=== PATIENT | female | born 1990 | race Caucasian/White ===

== ENCOUNTER 2021-09-01 20:07 | Inpatient (IN) | payer OTHER, SELFPAY ==
[2021-09-01 20:13] VITALS: BP 120/82; PULSE 95; O2SAT 99
--- NOTE | 2021-09-01 20:26 | ED.PSYCH ---
HPI - Psych General Chief Complaint: Psychiatric Symptoms Stated Complaint: SECTION 12 SI Time Seen by Provider: 09/01/21 20:26 Source: patient and EMS Mode of arrival: EMS Limitations: no limitations History of Present Illness HPI Narrative: 30-year-old female with history of connective tissue disorder, Tethered cord syndrome status post recent spinal surgery in June, depression, history of suicidal ideation and attempt 10 years ago with an overdose who presents to the ER from [facility] with suicidal ideation and plan to overdose. Patient is in chung bed in the emergency department and having a difficult time discussing why she is here and the details surrounding her current presentation. She admits to being depressed and needing help. MD complaint: suicidal ideation and feels depressed Onset (ago): unknown Duration: constant History of same: Yes Relieving factors: none Exacerbating factors: none Associated psychiatric symptoms: depression and suicidal ideation Associated symptoms: denies other symptoms Treatments prior to arrival: placed on mental health hold If self harm: admits thoughts of self harm Related Data Home Medications Medication Instructions Recorded Confirmed Saccharomyces boulardii 250 mg 250 mg PO DAILY 09/01/21 09/01/21 capsule (Florastor) acetaminophen 300 mg-codeine 30 mg 1 tab PO Q6H PRN pain 09/01/21 09/01/21 tablet albuterol sulfate 90 mcg/actuation 2 puff inhalation Q4H PRN 09/01/21 09/01/21 aerosol inhaler Respiratory Distress baclofen 10 mg tablet 20 mg PO QID 09/01/21 09/01/21 cetirizine 10 mg tablet 10 mg PO DAILY 09/01/21 09/01/21 cevimeline 30 mg capsule 1 cap PO TID 09/01/21 09/01/21 cholecalciferol (vitamin D3) 125 125 mcg PO DAILY 09/01/21 09/01/21 mcg (5,000 unit) tablet cromolyn 100 mg/5 mL oral 10 ml PO QID 09/01/21 09/01/21 concentrate diazepam 2 mg tablet 2 mg PO QID PRN Muscle Spasm 09/01/21 09/01/21 famotidine 40 mg tablet 40 mg PO BID 09/01/21 09/01/21 ferrous sulfate 143 mg (45 mg 1 tab PO QAM 09/01/21 09/01/21 iron) tablet,extended release (Slow Release Iron) fluticasone 250 mcg-salmeterol 50 1 inh inhalation BID 09/01/21 09/01/21 mcg/dose blistr powdr for inhalation (Advair Diskus) fluticasone propionate 50 1 spray intranasal DAILY 09/01/21 09/01/21 mcg/actuation nasal spray,suspension hydroxyzine HCl 10 mg tablet 20 mg PO BEDTIME 09/01/21 09/01/21 lidocaine 5 % topical patch 1 patch topical DAILY PRN Pain 09/01/21 09/01/21 lorazepam 0.5 mg tablet 0.5 mg PO Q6H PRN Anxiety 09/01/21 09/01/21 methocarbamol 500 mg tablet 500 mg PO BID 09/01/21 09/01/21 omeprazole 20 mg capsule,delayed 20 mg PO DAILY 09/01/21 09/01/21 release ondansetron 4 mg disintegrating 4 mg PO Q12H PRN Nausea 09/01/21 09/01/21 tablet pregabalin 150 mg capsule 150 mg PO 0800,1300,1800,2200 09/01/21 09/01/21 pyridostigmine bromide 60 mg tablet 60 mg PO TID 09/01/21 09/01/21 sennosides 8.6 mg-docusate sodium 2 tab-cap PO BEDTIME 09/01/21 09/01/21 50 mg tablet (Senna Plus) sumatriptan succinate 50 mg tablet 50 mg PO DAILY PRN Migraine 09/01/21 09/01/21 Headache tamsulosin 0.4 mg capsule 0.4 mg PO DAILY 09/01/21 09/01/21 testosterone 1 packet topical DAILY 09/01/21 09/01/21 Allergies Allergy/AdvReac Type Severity Reaction Status Date / Time bupropion [From Wellbutrin] Allergy Unknown Verified 09/01/21 20:36 ciprofloxacin [From Cipro] Allergy Unknown Verified 09/01/21 22:45 escitalopram [From Lexapro] Allergy Unknown Verified 09/01/21 20:36 lamotrigine [From Lamictal] Allergy Unknown Verified 09/01/21 22:45 pilocarpine Allergy Unknown Verified 09/01/21 20:36 topiramate [From Topamax] Allergy Unknown Verified 09/01/21 22:45 Review of Systems Review of Systems: Constitutional: No Fever, No Chills ENT/Mouth: No sore throat, No Rhinorrhea, No Swallowing Difficulty Eyes: No Eye Pain, No Swelling, No Redness Cardiovascular: No Chest Pain, No SOB Respiratory: No Cough, No Sputum Gastrointestinal: No Nausea, No Vomiting, No Diarrhea, No abdominal Pain Genitourinary: No Dysuria, No Urinary Frequency, No Hematuria Musculoskeletal: No joint pain, No Myalgias Skin: No Skin Lesions, No rash Neuro: +Weakness, No Numbness, No Dizziness, No Headache Psych:+Anxiety/Panic, + Depression, +SI, No HI, No AH, No VH Heme/Lymph: No Bruising, No Lymphadenopathy Endocrine: No Polyuria, No Polydipsia PMFSH Past Medical History Medical History (Updated 09/01/21 @ 22:41 by SHERRY Ramos) Connective tissue disease Surgical History (Updated 09/01/21 @ 20:50 by Pilar Cota RN) H/O Spinal surgery Social History Social History Patient Tobacco Use Status: Never used Tobacco Use of substances other than those prescribed or required for medical reasons: No Substance Use Type: Marijuana Advance Directives: No Advance Directives Information Provided: No Physical Exam Vital Signs: Vital Signs: Last Vital Signs Temp 97.4 F 09/01/21 20:31 Pulse 99 09/01/21 20:31 Resp 16 09/01/21 20:31 BP 138/97 H 09/01/21 20:31 Pulse Ox 98 09/01/21 20:31 O2 Del Method 09/01/21 20:31 BMI result Body Mass Index 31.8 Appearance: Alert. Oriented X3. No acute distress. Eyes: Pupils equal, round and reactive to light. ENT: Pharynx normal. Neck: Normal inspection. Neck supple. CVS: Normal heart rate and rhythm. Pulses normal. Respiratory: No respiratory distress. Breath sounds normal. Abdomen: Soft and nontender. +BS x4 Skin: Skin warm and dry. Normal skin color. Normal skin turgor. No rashes. Extremities: No lower extremity edema. Neuro/psych: Oriented X 3. Grossly normal, nonfocal. CN II-XII intact. Ambulates with a steady gait using her Rollator walker. Making eye contact, normal speech and cognition. Depressed and suicidal. Course Course Course Narrative: 30-year-old female presents to the ER for evaluation of suicidal ideation. She was at a [facility] respite where she told someone she had a planned overdose. Patient would not elaborate. She arrives with a Section 12 completed in the community. She is an inpatient bed search. Will get basic lab workup for medical clearance. Reevaluation(s) Reevaluation #1: Labs are normal. Her urine toxicology is positive for opiates, benzodiazepines and marijuana. Patient has been accepted to for admission. MDM - Psych Lab Data Result diagrams: 09/01/21 21:02 09/01/21 21:02 Labs: Lab Results 09/01/21 09/01/21 09/01/21 Range/Units 21:02 21:02 21:02 WBC 7.7 (4.8-10.8) X10*3/uL RBC 4.39 (4.20-5.50) X10*6/uL Hgb 13.6 (12.0-16.0) g/dl Hct 39.4 (37.0-47.0) % MCV 89.7 (80.0-98.0) fL MCH 31.0 (27.0-33.0) pg MCHC 34.5 (31.0-35.0) g/dl RDW 12.0 (11.0-16.0) % Plt Count 212 (160-400) X10*3/uL MPV 10.2 (9.4-12.3) fL Immature Gran % (Auto) 0.4 (0.0-0.4) % Neut % (Auto) 52.6 (45-73) % Lymph % (Auto) 37.2 (20-40) % [place] % (Auto) 8.1 (2-11) % Eos % (Auto) 1.4 (0-4) % Baso % (Auto) 0.3 (0-2) % Lymph # (Auto) 2.9 (1.2-4.9) X10*3/uL [place] # (Auto) 0.6 (0.1-1.2) X10*3/uL Eos # (Auto) 0.1 (0.0-0.4) X10*3/uL Baso # (Auto) 0.0 (0.0-0.2) X10*3/uL Abs Immat Gran (auto) 0.03 (0.00-0.03) X10*3/uL Absolute Neuts (auto) 4.0 (2.0-8.3) x10*3/uL Absolute Nucleated RBC 0.000 (0.0-0.012) X10*3/uL Nucleated RBC % (auto) 0.0 (0.0-0.2) /100WBC Sodium 140 (135-145) mmol/L Potassium 3.9 (3.3-5.1) mmol/L Chloride 107 (96-108) mmol/L Carbon Dioxide 25 (22-29) mmol/L Anion Gap 12 (12-20) BUN 8 L (9-16) mg/dL Creatinine 0.71 (0.5-1.4) mg/dL Estim Creat Clear Calc 101.6 Estimated GFR > 60 Random Glucose 94 (60-115) mg/dL Calcium 8.8 (8.4-10.2) mg/dL Magnesium 2.2 (1.6-2.6) mg/dL Total Bilirubin 0.5 (0.0-1.0) mg/dL Direct Bilirubin 0.2 (0.0-0.5) mg/dL AST 14 (5-31) U/L ALT 13 (0-31) U/L Alkaline Phosphatase 67 (39-117) U/L Total Protein 7.1 (6.5-8.0) g/dL Albumin 4.3 (3.5-5.0) g/dL Urine Test (NEGATIVE) Urine Opiates Screen (Not Detect) Urine Fentanyl Screen (Not Detect) Ur Barbiturates Screen (Not Detect) Ur Phencyclidine Scrn (Not Detect) Ur Amphetamines Screen (Not Detect) U Benzodiazepines Scrn (Not Detect) Urine Cocaine Screen (Not Detect) U Marijuana (THC) Screen (Not Detect) Ethyl Alcohol mg/dL COVID-19 (JUAN) Negative (Negative) COVID-19 Clin Com See Note 09/01/21 09/01/21 09/01/21 Range/Units 21:03 21:03 21:03 WBC (4.8-10.8) X10*3/uL RBC (4.20-5.50) X10*6/uL Hgb (12.0-16.0) g/dl Hct (37.0-47.0) % MCV (80.0-98.0) fL MCH (27.0-33.0) pg MCHC (31.0-35.0) g/dl RDW (11.0-16.0) % Plt Count (160-400) X10*3/uL MPV (9.4-12.3) fL Immature Gran % (Auto) (0.0-0.4) % Neut % (Auto) (45-73) % Lymph % (Auto) (20-40) % [place] % (Auto) (2-11) % Eos % (Auto) (0-4) % Baso % (Auto) (0-2) % Lymph # (Auto) (1.2-4.9) X10*3/uL [place] # (Auto) (0.1-1.2) X10*3/uL Eos # (Auto) (0.0-0.4) X10*3/uL Baso # (Auto) (0.0-0.2) X10*3/uL Abs Immat Gran (auto) (0.00-0.03) X10*3/uL Absolute Neuts (auto) (2.0-8.3) x10*3/uL Absolute Nucleated RBC (0.0-0.012) X10*3/uL Nucleated RBC % (auto) (0.0-0.2) /100WBC Sodium (135-145) mmol/L Potassium (3.3-5.1) mmol/L Chloride (96-108) mmol/L Carbon Dioxide (22-29) mmol/L Anion Gap (12-20) BUN (9-16) mg/dL Creatinine (0.5-1.4) mg/dL Estim Creat Clear Calc Estimated GFR Random Glucose (60-115) mg/dL Calcium (8.4-10.2) mg/dL Magnesium (1.6-2.6) mg/dL Total Bilirubin (0.0-1.0) mg/dL Direct Bilirubin (0.0-0.5) mg/dL AST (5-31) U/L ALT (0-31) U/L Alkaline Phosphatase (39-117) U/L Total Protein (6.5-8.0) g/dL Albumin (3.5-5.0) g/dL Urine Test NEGATIVE (NEGATIVE) Urine Opiates Screen POSITIVE H (Not Detect) Urine Fentanyl Screen Not Detected (Not Detect) Ur Barbiturates Screen Not Detected (Not Detect) Ur Phencyclidine Scrn Not Detected (Not Detect) Ur Amphetamines Screen Not Detected (Not Detect) U Benzodiazepines Scrn POSITIVE H (Not Detect) Urine Cocaine Screen Not Detected (Not Detect) U Marijuana (THC) Screen POSITIVE H (Not Detect) Ethyl Alcohol < 10 mg/dL COVID-19 (JUAN) (Negative) COVID-19 Clin Com Critical Care Time Critical Care Time Critical Care Time: No Discharge Plan Discharge Clinical Impression: Suicidal ideation, Polysubstance abuse Patient Disposition: Admitted As Inpatient Interventions: Admission Worksheet (ED) Last Done: 09/01/21 22:46
[2021-09-01 20:31] VITALS: BP 138/97; PULSE 99; RESP 16; TEMP 36.3; O2SAT 98; BMI 31.8
--- NOTE | 2021-09-01 20:52 | PC.NURSE ---
pt changed over. Susana 1:1 with pt.
[2021-09-01 21:11] LABS: MANUAL DIFF FLAG NO
[2021-09-01 21:13] LABS: Basophils Percent Auto 0.3 % (0-2); Eosinophils Absolute Auto 0.1 X10*3/uL (0.0-0.4); Eosinophils Percent Auto 1.4 % (0-4); Hematocrit 39.4 % (37.0-47.0); Hemoglobin 13.6 g/dl (12.0-16.0); Imm Gran Abs Auto 0.03 X10*3/uL (0.00-0.03); Imm Gran Pct Auto 0.4 % (0.0-0.4); Lymphocytes Absolute Auto 2.9 X10*3/uL (1.2-4.9); Lymphocytes Percent Auto 37.2 % (20-40); Mean Corpuscular HGB Conc 34.5 g/dl (31.0-35.0); Mean Corpuscular Volume 89.7 fL (80.0-98.0); Mean Platelet Volume 10.2 fL (9.4-12.3); Monocytes Absolute Auto 0.6 X10*3/uL (0.1-1.2); Monocytes Percent Auto 8.1 % (2-11); Neutrophils Percent Auto 52.6 % (45-73); Platelet Count 212 X10*3/uL (160-400); Red Blood Count 4.39 X10*6/uL (4.20-5.50); White Blood Count 7.7 X10*3/uL (4.8-10.8)
[2021-09-01 21:15] LABS: UPreg QC Valid YES; Urine Pregnancy NEGATIVE (NEGATIVE)
[2021-09-01 21:27] LABS: Ethanol < 10 mg/dL
[2021-09-01 21:29] LABS: COVID-19 Test Negative (Negative)
[2021-09-01 21:29] LABS: Amphetamine Screen Urine Not Detected (Not Detect); Barbiturates, Urine Not Detected (Not Detect); Benzodiazepines Screen Urine POSITIVE (Not Detect); Cannabinoid Screen Urine POSITIVE (Not Detect); Cocaine Screen Urine Not Detected (Not Detect); Fentanyl, urine Not Detected (Not Detect); Opiate Screen Urine POSITIVE (Not Detect); Phencyclidine Screen Urine Not Detected (Not Detect)
[2021-09-01 21:30] LABS: Alanine Aminotransferase 13 U/L (0-31); Albumin Level 4.3 g/dL (3.5-5.0); Alkaline Phosphatase 67 U/L (39-117); Anion Gap 12 (12-20); Aspartate Amino Transferase 14 U/L (5-31); Bilirubin Direct 0.2 mg/dL (0.0-0.5); Bilirubin Total 0.5 mg/dL (0.0-1.0); Blood Urea Nitrogen 8 mg/dL (9-16); Calcium 8.8 mg/dL (8.4-10.2); Carbon Dioxide 25 mmol/L (22-29); Chloride 107 mmol/L (96-108); Creatinine Clr Calc Pharmacy 101.6; Estimated Glomerular Filt Rate > 60; Glucose Random 94 mg/dL (60-115); Magnesium 2.2 mg/dL (1.6-2.6); Potassium 3.9 mmol/L (3.3-5.1); Sodium 140 mmol/L (135-145); Total Protein 7.1 g/dL (6.5-8.0)
--- NOTE | 2021-09-01 22:35 | PHA.MEDREC ---
med rec complete, no issues Pharmacy Consult ? Medication Reconciliation Pharmacy has completed the medication reconciliation.
--- NOTE | 2021-09-01 22:45 | PC.NURSE ---
report given to Ernie NG pt aware of plan for care
[2021-09-02] MEDS: Baclofen 20 MG TABLET PO ×5 (00:47→22:13)
[2021-09-02] MEDS: Famotidine 20 MG TABLET 40 MG PO ×2 (00:47→07:58)
[2021-09-02] MEDS: Sennosides/Docusate Sodium TABLET 2 TAB PO ×2 (00:47→22:12)
[2021-09-02 01:01] VITALS: BP 132/99; PULSE 87; RESP 16; TEMP 37.5; O2SAT 98
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
[2021-09-02] MEDS: diazePAM 2 MG TABLET PO ×4 (02:44→22:19)
--- NOTE | 2021-09-02 03:00 | PC.NURSE ---
PT SIGNED A 3 DAY NOTICE ON 09/01/2021. UP ON 09/06/2021.
[2021-09-02] MEDS: Cholecalciferol (Vitamin D3) 25 MCG TABLET 125 MCG PO (07:57)
[2021-09-02] MEDS: Tamsulosin HCL 0.4 MG CAPSULE PO (07:58)
[2021-09-02] MEDS: Ondansetron ODT 4 MG TAB.RAPDIS TRANSLINGU (07:58)
[2021-09-02] MEDS: Loratadine 10 MG TABLET PO (07:58)
[2021-09-02] MEDS: Omeprazole 20 MG CAPSULE.DR PO (07:58)
[2021-09-02] MEDS: Fluticasone Propionate Nasal 16 GM SPRAY 1 SPRAY NOSTRIL-B (09:44)
[2021-09-02] MEDS: Pregabalin 150 MG CAPSULE PO ×4 (09:44→22:12)
[2021-09-02] MEDS: Fluticasone/Vilanterol 100/25 BLST.W.DEV 1 PUFF INHALE (09:45)
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
[2021-09-02] MEDS: Acetaminophen 325 MG TABLET 650 MG PO (16:50)
[2021-09-02 18:00] VITALS: BP 139/82; PULSE 80; RESP 18; TEMP 36.8; O2SAT 98
[2021-09-02] MEDS: hydrOXYzine HCL 10 MG TABLET 20 MG PO (22:09)
[2021-09-03 09:00] VITALS: BP 136/90; TEMP 37.1
[2021-09-03] MEDS: Loratadine 10 MG TABLET PO (09:38)
[2021-09-03] MEDS: Baclofen 20 MG TABLET PO (09:38)
[2021-09-03] MEDS: Tamsulosin HCL 0.4 MG CAPSULE PO (09:38)
[2021-09-03] MEDS: Omeprazole 20 MG CAPSULE.DR PO (09:38)
[2021-09-03] MEDS: Fluticasone/Vilanterol 100/25 BLST.W.DEV 1 PUFF INHALE (09:39)
[2021-09-03] MEDS: Cholecalciferol (Vitamin D3) 25 MCG TABLET 125 MCG PO (09:39)
[2021-09-03] MEDS: Pregabalin 150 MG CAPSULE PO (09:39)
[2021-09-03] MEDS: Fluticasone Propionate Nasal 16 GM SPRAY 1 SPRAY NOSTRIL-B (09:39)
[2021-09-03] MEDS: Famotidine 20 MG TABLET 40 MG PO (09:39)
[2021-09-03] MEDS: SUMAtriptan succinate 50 MG TABLET PO (09:46)
[2021-09-03] MEDS: diazePAM 2 MG TABLET PO (09:46)
== END 2021-09-03 13:43 | disposition home or self-care (01) | DRG 755 ==
LOC: HO.ED 22:46 → HO.PM5 09-02
PROVIDERS: Physician Assistant; Admitting Provider Psychiatry & Neurology Psychiatry; Emergency Provider Internal Medicine; PCP Family Medicine; Visit Provider Psychiatry & Neurology Psychiatry
DX: F43.12 Post-traumatic stress disorder, chronic (principal); D47.09 Other mast cell neoplasms of uncertain behavior; R45.851 Suicidal ideations; Z20.822 Contact with and (suspected) exposure to COVID-19; Z91.51 Personal history of suicidal behavior; M35.9 Systemic involvement of connective tissue, unspecified; F19.10 Other psychoactive substance abuse, uncomplicated; Z79.51 Long term (current) use of inhaled steroids; Z88.1 Allergy status to other antibiotic agents; Z88.8 Allergy status to other drugs, medicaments and biological substances; Z79.899 Other long term (current) drug therapy
CPT/HCPCS: 80048; 80076; 80307; 81025; 82077; 83735; 85025; 87635; 99285

== ENCOUNTER 2022-10-15 11:32 | Emergency (ER) | payer OTHER, SELFPAY ==
[2022-10-15] VITALS (7 sets, daily range): BP systolic 106–127; BP diastolic 52–85; PULSE 70–85; RESP 14–18; TEMP 36.6–36.9; O2SAT 93–96; BMI 29.3
--- NOTE | ~2022-10-15 | CT_ITS ---
EXAMINATION: CT ANGIOGRAM OF THE CHEST WITH AND WITHOUT CONTRAST (CT PULMONARY ANGIOGRAM FOR PE) CLINICAL INFORMATION: Reason for Exam +DVT, syncope, eval for saddle PE COMPARISON: None available. TECHNIQUE: Prior to contrast administration, noncontrast localization images were obtained. Subsequently, multidetector volumetric imaging was performed from the thoracic inlet to below the diaphragms following the administration of 80 mL Omnipaque 350 intravenous contrast. No contrast reaction reported Sagittal, coronal, and MIP oblique sagittal reformatted images were obtained on the CT workstation, uploaded to PACS, and reviewed. This CT examination was performed using dose optimization techniques as appropriate, variously including the following: *Automated exposure control *Adjustment of mA and/or kV according to patient size (this includes techniques or standardized protocols for targeted exams where dose is matched to indication/reason for exam; i.e. extremities or head) *Use of iterative reconstruction technique Total exam dose-length product 412 mGy-cm FINDINGS: QUALITY OF STUDY/CONTRAST BOLUS: Satisfactory. PULMONARY ARTERIES: There are multiple filling defects in bilateral lower lobe pulmonary artery branches consistent with PE. There is thrombus visualized in the proximal right upper lobe pulmonary artery branches well. THORACIC AORTA: No aneurysm. LUNG: The lungs are expanded with compressive atelectasis in both lower lobes posterior segments and minimal platelike atelectasis in in bilateral lung bases. PLEURA: There is bilateral small pleural effusions. MEDIASTINUM: Normal heart size. No pericardial effusion. No hilar or mediastinal lymphadenopathy. No evidence of septal bowing or right heart strain. CORONARY ARTERY CALCIFICATION: None visualized on this study. CHEST WALL/AXILLA: No axillary or internal mammary lymphadenopathy. OSSEOUS STRUCTURES: No acute or suspicious osseous abnormality. UPPER ABDOMEN: Visualized liver and spleen appears unremarkable. No reflux of contrast into the hepatic veins to suggest elevated right heart pressures. CT/CT angio chest PE protocol IMPRESSION: Bilateral PE. Bilateral small pleural effusions with compressive and platelike atelectasis in both lower lobes. Results were immediately called by phone to Ashley Jansen NP at 3:47 PM. VTE: positive
--- NOTE | ~2022-10-15 | US_ITS ---
EXAMINATION: US VENOUS ULTRASOUND WITH DOPPLER LOWER EXTREMITY, BILATERAL CLINICAL INFORMATION: Leg pain, PE recently. COMPARISON: None available. TECHNIQUE: Ultrasound of the deep veins is performed from the hip to the calf with compression sonography and color and pulse Doppler assessment. Spectral analysis with color-flow imaging is performed. FINDINGS: RIGHT: Positive deep venous thrombosis is seen in the distal segment of the right femoral vein as well as the popliteal and peroneal veins. The right common femoral, profunda femoral, proximal femoral, mid femoral and posterior tibial veins are patent. No right popliteal cyst. The subcutaneous soft tissues are unremarkable. LEFT: There is no evidence for deep venous thrombosis in the left common femoral, profunda femoral, femoral, popliteal and calf veins. No left popliteal cyst. The subcutaneous soft tissues are unremarkable. If the patient's symptoms persist, followup ultrasound in 5 days 7 days might be of value to exclude proximal propagation from a non-visualized calf vein. US/US venous duplex LE IMPRESSION: 1. Positive deep venous thrombosis in the right lower extremity as detailed above. 2. No evidence for deep venous thrombosis in the left lower extremity.
--- NOTE | ~2022-10-15 | XR_ITS ---
EXAMINATION: CHEST 2 VIEWS CLINICAL INFORMATION: Near syncope. COMPARISON: No recent pertinent prior studies are available for comparison. TECHNIQUE: AP frontal and lateral views of the chest obtained FINDINGS: The lungs are hypoexpanded. No focal infiltrate, effusion, edema, or pneumothorax. Cardiac and mediastinal silhouettes are within normal limits for technique. No acute bony abnormality seen with old healed lateral left seventh rib fracture again noted. XR/XR chest 2V IMPRESSION: Hypoexpanded but otherwise no evidence of acute disease.
--- NOTE | ~2022-10-15 | CT_ITS ---
CT head/brain wo IV con CLINICAL INFORMATION: Reason for Exam ISSA COMPARISON: No prior CT scan available for comparison. TECHNIQUE: Department standard protocol. This CT examination was performed using dose optimization techniques as appropriate, variously including the following: *Automated exposure control *Adjustment of mA and/or kV according to patient size (this includes techniques or standardized protocols for targeted exams where dose is matched to indication/reason for exam; i.e. extremities or head) *Use of iterative reconstruction technique DLP: 659 mGy-cm FINDINGS: CEREBRAL HEMISPHERES: There is no evidence of intra-axial or extra-axial mass, hemorrhage or acute infarct. BRAIN PARENCHYMA: Normal [place]-white matter differentiation. SUBDURAL SPACE: No bleed. BASAL GANGLIA AND PINEAL GLAND: Unremarkable VENTRICLES: Symmetric and normal in size. CEREBELLUM AND BRAINSTEM: No space-occupying mass, hemorrhage or acute infarct. CEREBELLOPONTINE ANGLES: No lesion found. ORBITS: No intraorbital mass. VESSELS: Unremarkable SKULL BASE: Unremarkable INCLUDED SINUSES AT SKULL BASE: Clear SKULL AND SKIN: No fracture or bone lesion found. CT/CT head/brain wo IV con IMPRESSION: No CT evidence of intracranial space-occupying mass, bleed or infarct.
--- NOTE | 2022-10-15 12:01 | ED_ITS ---
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 She does have chest discomfort with breathing. No SOB, cough, fevers, chills, abdominal pain, vomiting, diarrhea. Feels dizzy all the time even when she is resting. Reports her doctors recently increased her doses of codeine and valium for body pain/spasticity. Denies additional med changes. Also c/o generalized ISSA x 5 days prior to starting the AC therapy Related Data Home Medications Medication Instructions Recorded Confirmed albuterol sulfate 90 mcg/actuation 2 puff inhalation Q4H PRN 09/01/21 10/15/22 aerosol inhaler Respiratory Distress baclofen 10 mg tablet 20 mg PO 01,07,13,19 09/01/21 10/16/22 cetirizine 10 mg tablet 10 mg PO BID 09/01/21 10/15/22 cevimeline 30 mg capsule 1 cap PO TID@0700,1300,1900 09/01/21 10/16/22 cholecalciferol (vitamin D3) 125 125 mcg PO DAILY 09/01/21 10/15/22 mcg (5,000 unit) tablet cromolyn 100 mg/5 mL oral 10 ml PO QID 09/01/21 10/15/22 concentrate diazepam 2 mg tablet 2 mg PO 6XD PRN Muscle Spasm 09/01/21 10/15/22 famotidine 40 mg tablet 40 mg PO BID@0700,1900 09/01/21 10/16/22 fluticasone 250 mcg-salmeterol 50 1 inh inhalation BID 09/01/21 10/15/22 mcg/dose blistr powdr for inhalation (Advair Diskus) lorazepam 0.5 mg tablet 0.5 mg PO Q6H PRN Anxiety 09/01/21 10/15/22 omeprazole 20 mg capsule,delayed 20 mg PO DAILY 09/01/21 10/15/22 release ondansetron 4 mg disintegrating 4 mg PO Q12H PRN Nausea 09/01/21 10/15/22 tablet pregabalin 150 mg capsule 150 mg PO 0100,0700,1300,1900 09/01/21 10/16/22 pyridostigmine bromide 60 mg tablet 60 mg PO BID@0100,1300 09/01/21 10/16/22 sumatriptan succinate 50 mg tablet 50 mg PO DAILY PRN Migraine 09/01/21 10/15/22 Headache tamsulosin 0.4 mg capsule 0.8 mg PO DAILY 09/01/21 10/15/22 apixaban 5 mg tablet (Eliquis) 5 mg PO BID@0700,1900 10/15/22 10/16/22 ascorbic acid (vitamin C) 500 mg 500 mg PO BID 10/15/22 10/15/22 tablet (Vitamin C) azelastine 137 mcg (0.1 %) nasal 1 spray intranasal BID 10/15/22 10/15/22 spray aerosol carbidopa 25 mg-levodopa 100 mg 0.5 tab PO TID@0700,1300,1900 10/15/22 10/16/22 tablet codeine sulfate 30 mg tablet 30 mg PO Q4H PRN pain 10/15/22 10/15/22 cromolyn 5.2 mg/spray (4 %) nasal 1 spray intranasal BID 10/15/22 10/15/22 spray (Nasalcrom) docusate sodium 100 mg capsule 100 mg PO BID PRN Constipation 10/15/22 10/15/22 fexofenadine 180 mg tablet 180 mg PO DAILY 10/15/22 10/15/22 hydroxyzine HCl 25 mg tablet 25 mg PO 0100,0700,1300,1900 10/15/22 10/16/22 magnesium glycinate 100 mg tablet 400 mg PO DAILY 10/15/22 10/15/22 montelukast 10 mg tablet 10 mg PO DAILY 10/15/22 10/15/22 omega 9-ned-ris-fish oil 1,000 mg 1 cap PO DAILY 10/15/22 10/15/22 (120 mg-180 mg) capsule (Fish Oil) pyridostigmine bromide 60 mg tablet 90 mg PO BID@0700,1900 10/15/22 10/16/22 quercetin 500 mg capsule 1,600 mg PO DAILY 10/15/22 10/15/22 simethicone 125 mg capsule (Gas 125 mg PO DAILY PRN 10/15/22 10/15/22 Relief Extra Strength) Gastrointestinal Spasms Or Cramping tizanidine 2 mg tablet 3 mg PO Q8H 10/15/22 10/16/22 Allergies Allergy/AdvReac Type Severity Reaction Status Date / Time bupropion [From Wellbutrin] Allergy Unknown Verified 09/01/21 20:36 ciprofloxacin [From Cipro] Allergy Unknown Verified 09/01/21 22:45 escitalopram [From Lexapro] Allergy Unknown Verified 09/01/21 20:36 garlic Allergy Vomiting Verified 09/02/21 00:59 gluten Allergy Vomiting Verified 09/02/21 00:59 lamotrigine [From Lamictal] Allergy Unknown Verified 09/01/21 22:45 onion Allergy Vomiting Verified 09/02/21 00:59 pilocarpine Allergy Unknown Verified 09/01/21 20:36 topiramate [From Topamax] Allergy Unknown Verified 09/01/21 22:45 Review of Systems Review of Systems: Yes all other systems are reviewed and are negative Constitutional: Constitutional: Reports no additional constitutional complaints, Denies body ache(s), Denies chills, Denies fever(s), Reports headache(s) and Reports weakness Eyes: Eyes: Reports no additional eye complaints and Denies change in vision ENT: Reports system reviewed and no additional complaints, except as documented, Reports dizziness, Reports headache(s), Denies nasal congestion, Denies nasal discharge and Denies neck pain Cardiovascular: Cardiovascular: Reports no additional cardiovascular complaints, Reports chest pain, Denies leg edema and Denies dyspnea Respiratory: Respiratory: Reports no additional respiratory complaints, Denies cough and Denies dyspnea Gastrointestinal: Gastrointestinal: Reports no additional gastrointestinal complaints, Denies abdominal pain, Denies diarrhea, Denies nausea and Denies vomiting Genitourinary: Genitourinary: Reports no additional female genitourinary complaints and Denies urinary incontinence Musculoskeletal: Musculoskeletal: Reports no additional musculoskeletal c omplaints, Denies back pain, Denies arthralgias, Denies joint swelling, Denies neck pain, Denies numbness and Denies tingling Comments: +calf pain Integumentary/Breasts: Skin/Breast: Reports system reviewed and no additional complaints, except as docu and Denies rash Neurologic: Reports system reviewed and no additional complaints, except as documented, Reports dizziness, Reports headache(s), Denies numbness, Denies tingling and Reports weakness PMFSH Past Medical History Attestation statement: The following information was validated with the patient. Source: old records reviewed and nursing notes reviewed Surgical History H/O Spinal surgery Social History Social History Household Members: None Household Members Other:: LIVES ALONE Housing: Apartment Do you presently have visiting nurse or other home services: No Alcohol intake: never Patient Tobacco Use Status: Never used Tobacco Smoked in Last 30 Days: No Use of substances other than those prescribed or required for medical reasons: Yes Substance Use Type: Marijuana Advance Directives: Yes Advance Directives on File: Yes Advance Directives Date on File: 10/19/22 Patient : No service: Yes Sexual orientation: Decline to Answer Physical Exam ED Vital Signs: Vital Signs - 24 hr 10/19/22 21:57 10/20/22 05:05 10/20/22 12:00 Temperature 97.2 F 97.0 F 98 F Pulse Rate 56 73 71 Respiratory Rate 18 18 16 Blood Pressure 106/64 102/67 105/69 Pulse Oximetry 96 99 94 Oxygen Delivery Method Room Air Room Air Room Air 10/20/22 17:41 Temperature 97.3 F Pulse Rate 70 Respiratory Rate 16 Blood Pressure 117/78 Pulse Oximetry 98 Oxygen Delivery Method Room Air BMI result Body Mass Index 29.3 Const General: cooperative, healthy appearing, comfortable and no acute distress Orientation/consciousness: patient oriented x3 Limitations: no limitations HENMT Head: Yes normal to inspection Ears: hearing grossly normal bilaterally and TM's normal bilaterally Face and sinus: Yes normal facial exam Mouth: Normal oral and palatal mucosa present Throat: Yes posterior oropharynx normal, Yes tonsils normal and Yes uvula midline Eyes General: appearance normal, both eyes and all related structures Pupils: Equal, round and reactive pupils present Neck Neck: Yes normal visual inspection, Yes full ROM and Yes no lymphadenopathy Chest Chest palpation & inspection: normal inspection of the chest Neuro Other: Hypertonia LE General: patient oriented x3, moves all extremities and Unable to assess gait Cranial nerves: Yes CN's II-XII intact bilaterally, Yes Equal, round and reactive pupils present, Yes Bilaterally intact EOM present, Yes Nystagmus not present, Yes Normal facial strength present and Yes Midline tongue present Cognition (Neuro): normal cognition Gait exam (Neuro): Unable to assess gait Motor exam (neuro): 5/5 motor strength present throughout Sensory Exam: Normal double simultaneous stimulation for sensation Coordination: [id number] test normal Extrem Other: Tenderness to both calves General: Yes normal to inspection and Yes no pedal edema Course Course Course Narrative: 142-ultrasound shows a right lower extremity DVT. They were unable to obtain records from [facility] with recent admission. Will check CT chest to rule out PE and any saddle emobil, right heart strain. Also c/o ISSA and d/t AC therapy use will obtain CT head to r/o ICH. I spoke to the patient and her medical case worker at the bedside at length. They are concerned that the patient has had a decline over the last 6 weeks. Patient at that time had a baclofen pump inserted and since then has been struggling with various complaints. She does live alone and is concerned about being home alone. She tells me she does not walk far d/t her lower extremity spasticity. I did discuss short-term rehab as an option but the patient was not interested in this. She has been to several different hospitals including [facility] and has various providers over the [facility] area. She may benefit from following up with her primary care doctor for a total review of all of her medical conditions and medications and further management. Reevaluation(s) Reevaluation #1: 1600-CT of the chest does show bilateral pulmonary emboli. Patient is already on Eliquis. There is no evidence of saddle pulmonary embolism or right heart strain. Patient also has a right lower extremity DVT which was likely the cause of her pulmonary embolism. This was likely secondary to recent baclofen pump insertion and sedentary state due to increased spasticity of the lower extremities. Patient's labs are unremarkable. EKG is nonischemic. Orthostatics are negative. CT head shows no acute finding. Not sure why the patient is having burning skin sensation Patient is complaining of dizziness which seems nonpositional as well as headache. She is concerned her blood pressure may be low. It is normotensive here. She is on multiple medications which may lower her blood pressure and we did discuss that she may need a med review from her primary care doctor. She also recently increased her codeine and Valium dosages so this may be contributing to some of her symptoms. I have low suspicion for organic neurol ogical cause as patient appears to be at her baseline. She does live home alone and has had difficulty with her ADLs from both her lower extremity spasticity as well as her current symptoms. I do think would be beneficial for the patient to be seen by physical therapy and have case management involvement. Patient was agreeable to this. Will place patient in position observation pending disposi tion Reevaluation #2: At this time patient to remain in observation, vital signs are stable, uneventful night. Med reconciliation down. Pending PT and case management Time: 07:21 Reevaluation #3: Care team saw patient hopeful for SNF placement, pending PT eval tomorrow. Time: 06:53 Additional Reevaluation(s): Physician observation continued. No overnight events reported by nursing. Awaiting PT evaluation today. Patient being followed by case management. Vital signs stable. 09:25 PT in ED for evaluation, notified nursing that patient's O2 sat dropped to 80-82% with standing/taking a few steps. [place] text to Marshall Miguel NP for admission, she states patient can be discharged to either home on STR on O2 as she is already being appropriately treated for her emboli and does not meet admission criteria. Discussed with Brynn from who will look into obtaining home O2 for patient. 15:00 Patient requesting to speak to a provider after conversation with medical case worker. Patient expressing concern that her hypoxia with standing/ambulating could be related to heart failure, has history of heart failure 3 years prior. States most recent echo was earlier this year and was normal. No crackles appreciated on exam, no lower extremity edema, no evidence of fluid overload on CXR from 10/15. Will order BNP. 16:32 BNP is 24. Patient has no other clinical signs of heart failure. Do not feel echo is indicated at this time. 10/18/22 06:34 Physician observation continued, no overnight events reported by nursing. Vital signs stable. Plan is transfer to rehab, followed by CM. 10/18/22 15:42 Patient requesting to speak with this provider via the RN. Patient stating she feels as though we do not have adequate medical records to justify her placement at [facility]. States she has been seen at [facility], [facility], and [facility]. Will request medical records from those facilities. Patient is agreeable to this. 10/19/22-- 1109--physician observation continued. Labs reviewed. Satting 98% on RA this morning. Physical therapy went to evaluate patient this morning/ambulate to evaluate patient's oxygenation status however patient declined as was on the phone, they will return for re-evaluation. Case management following for likely placement. 10/20/2022 1634 -- Physican observation continues. Patient's eliquis order was incorrect. Spoke with pharmacy and we agreed that the patient should be restarted on their loading dose given they were only given the loading dose from 10/13 to 10/15 when it should have been from 10/13 to 10/20. Patient will now be on 10mg BID from today 10/20 to 10/27 then go back down to 5mg BID. Patient asked multiple times today to discharge but when I offered to put in discharge instructions, they stated they actually didn't want to be discharged. 10/20/20222027- patient is requesting to leave against medical advice because they do not feel a received appropriate care. I tried to discussed with the patient about the concerns and was cut short with ?I just want to get my meds and get out here. ? I patient that I was under the impression they are looking to get placed in a seen if because they could not care for themselves at home. The patient reports that they will ?go to another ER. ? The patient demanded to be medicated and then will leave against medical advice. The patient's vital signs are currently stable Medications Administered Generic Name Dose Route Start Last Admin Trade Name Freq PRN Reason Stop Dose Admin Ascorbic Acid 500 mg 10/15/22 21:00 10/20/22 08:55 Ascorbic Acid 500 Mg Tablet PO 500 mg BID BARI Administration Azelastine HCl 1 spray 10/15/22 21:00 10/20/22 08:54 Azelastine Hcl Nasal 137 Mcg/[place] 30 Ml NOSTRIL-B 1 spray BID BARI Administration Baclofen 20 mg 10/16/22 13:00 10/20/22 18:16 Baclofen 20 Mg Tablet PO 20 mg 0100,0700,1300,1900 BARI Administration Carbidopa/Levodopa 0.5 tab 10/16/22 13:00 10/20/22 18:15 Carbidopa/Levodopa 25/100 Tablet PO 0.5 tab TID@0700,1300,1900 BARI Administration Cromolyn Sodium 1 spray 10/15/22 21:00 10/20/22 08:55 Cromolyn Sodium Nasal 26 Ml Bottle NOSTRIL-B 1 spray BID BARI Administration Diazepam 2 mg 10/17/22 08:00 10/20/22 20:07 Diazepam 2 Mg Tablet PO 2 mg Q4H PRN Administration Muscle Spasm Docusate Sodium 100 mg 10/15/22 20:30 10/20/22 13:42 Docusate Sodium 100 Mg Capsule PO 100 mg BID PRN Administration Constipation Famotidine 40 mg 10/16/22 19:00 10/20/22 20:08 Famotidine 20 Mg Tablet PO 40 mg BID@0700,1900 BARI Administration Fluticasone/Vilanterol 1 puff 10/16/22 08:00 10/20/22 08:01 Fluticasone/Vilanterol 100/25 Blst.W.Dev INHALE 1 puff RDAILY [facility] Administration Hydroxyzine HCl 25 mg 10/15/22 20:30 10/20/22 08:00 Hydroxyzine Hcl 25 Mg Tablet PO 25 mg Q6H PRN Administration Itching Loratadine 10 mg 10/16/22 09:00 10/20/22 08:55 Loratadine 10 Mg Tablet PO 10 mg DAILY BARI Administration Montelukast Sodium 10 mg 10/15/22 21:15 10/19/22 21:10 Montelukast Sodium 10 Mg Tablet PO 10 mg BEDTIME BARI Administration Morphine Sulfate 15 mg 10/19/22 20:44 10/20/22 20:07 Morphine Sulfate Immed Release 15 Mg Tablet PO 15 mg RQ6H PRN Administration Pain, Severe (Pain Scale 7-10) Omeprazole 20 mg 10/15/22 20:45 10/20/22 05:11 Omeprazole 20 Mg Capsule.Dr PO 20 mg DAILY@0630 BARI Administration Ondansetron HCl 4 mg 10/15/22 20:30 10/20/22 13:42 Ondansetron Odt 4 Mg Tab.Rapdis TRANSLINGU 4 mg Q12H PRN Administration Nausea Pregabalin 150 mg 10/16/22 13:00 10/20/22 20:11 Pregabalin 150 Mg Capsule PO 150 mg 0100,0700,1300,1900 BARI Administration Pyridostigmine [place] 60 mg 10/16/22 13:00 10/20/22 12:49 Pyridostigmine [place] 60 Mg Tablet PO 60 mg BID@0100,1300 BARI Administration Pyridostigmine [place] 90 mg 10/16/22 19:00 10/20/22 20:08 Pyridostigmine [place] 60 Mg Tablet PO 90 mg BID@0700,1900 BARI Administration Sumatriptan Succinate 50 mg 10/15/22 20:30 10/19/22 15:02 Sumatriptan Succinate 50 Mg Tablet PO 50 mg DAILY PRN Administration Migraine Headache Tamsulosin HCl 0.8 mg 10/15/22 20:45 10/20/22 08:55 Tamsulosin Hcl 0.4 Mg Capsule PO 0.8 mg DAILY BARI Administration Tizanidine HCl 2 mg 10/17/22 09:00 10/20/22 15:25 Tizanidine Hcl 4 Mg Tablet PO 2 mg TID BARI Administration Vitamin D 125 mcg 10/15/22 20:45 10/20/22 10:27 Cholecalciferol (Vitamin D3) 25 Mcg Tablet PO 125 mcg DAILY BARI Administration Discontinued Medications Generic Name Dose Route Start Last Admin Trade Name Wesq PRN Reason Stop Dose Admin Apixaban 5 mg 10/15/22 21:00 10/16/22 08:24 Apixaban 5 Mg Tablet PO 5 mg BID BARI Administration Apixaban 5 mg 10/16/22 19:00 10/20/22 08:00 Apixaban 5 Mg Tablet PO 5 mg BID@0700,1900 BARI Administration Apixaban 5 mg 10/20/22 11:01 10/20/22 11:17 Apixaban 5 Mg Tablet PO 10/20/22 11:02 5 mg STAT STA Administration Baclofen 20 mg 10/15/22 21:00 10/16/22 08:22 Baclofen 20 Mg Tablet PO 20 mg QID BARI Administration Carbidopa/Levodopa 0.5 tab 10/15/22 21:00 10/16/22 08:22 Carbidopa/Levodopa 25/100 Tablet PO 0.5 tab TID BARI Administration Dantrolene Sodium 100 mg 10/20/22 11:21 10/20/22 14:00 Dantrolene Sodium 25 Mg Capsule PO 10/20/22 11:22 100 mg ONCE ONE Administration Diazepam 2 mg 10/15/22 20:30 10/17/22 03:44 Diazepam 2 Mg Tablet PO 2 mg 6XD PRN Administration Muscle Spasm Famotidine 40 mg 10/15/22 21:00 10/16/22 08:26 Famotidine 20 Mg Tablet PO 40 mg BID BARI Administration Sodium Chloride 1,000 mls @ 999 mls/hr 10/15/22 12:52 10/15/22 16:52 Ns IV 10/15/22 13:52 Infused .Q1H1M STA Infusion Lorazepam 0.5 mg 10/15/22 20:30 10/18/22 13:13 Lorazepam 0.5 Mg Tablet PO 0.5 mg Q6H PRN Administration Anxiety Non-Formulary Medication 180 mg 10/15/22 20:45 10/15/22 21:59 Fexofenadine PO Not Given DAILY [facility] Non-Formulary Medication 1 cap 10/15/22 20:45 10/15/22 21:59 [place] 8-Pdh-Gxl-Fish Oil [Fish Oil] PO Not Given DAILY BARI Oxycodone HCl 15 mg 10/15/22 22:00 10/17/22 16:51 Oxycodone Hcl Immed Release 15 Mg Tablet PO Not Given Q6H BARI Oxycodone HCl 15 mg 10/17/22 16:20 10/19/22 16:18 Oxycodone Hcl Immed Release 5 Mg Tablet PO 15 mg Q6H BARI Administration Pregabalin 150 mg 10/15/22 21:00 10/16/22 08:23 Pregabalin 150 Mg Capsule PO 150 mg QID BARI Administration Pyridostigmine [place] 60 mg 10/15/22 21:00 10/16/22 13:15 Pyridostigmine [place] 60 Mg Tablet PO Not Given BID@1200,2100 BARI Pyridostigmine [place] 90 mg 10/16/22 07:30 10/16/22 07:06 Pyridostigmine [place] 60 Mg Tablet PO 90 mg BID@0730,1730 BARI Administration Tizanidine HCl 3 mg 10/15/22 21:00 10/16/22 20:51 Tizanidine Hcl 4 Mg Tablet PO 3 mg TID BARI Administration Medical Decision Making Medical Decision Making [facility] Narrative: 31 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 She does have chest discomfort with breathing. No SOB, cough, fevers, chills, abdominal pain, vomiting, diarrhea. Feels dizzy all the time even when she is resting. Reports her doctors recently increased her doses of codeine and valium for body pain/spasticity. Denies additional med changes. Normal neuro exam with no focal deficits. Unable to ambulate her d/t LE spasticity (patient at baseline walks several steps only) Her vitals are stable Symptoms may be multifactorial Will obtain labs, UA, EKG, chest x-ray, orthostatic vital sign Differential Diagnosis Differential Diagnoses: The differential diagnosis associated with the present ation includes Orthostatic hypotension, DVT electrolyte abnormality, anemia, adverse reaction from medication Doubt acs, saddle PE, ICH/CVA Admission/Observation Consideration of admission/observation: Escalation of care including admission/observation considered Patient has recently diagnosed pulmonary embolism currently on Eliquis. She has no evidence of right heart strain, saddle pulmonary embolism or hypoxia to suggest need for admission. Lab Data [facility] Lab Attestation statement: I reviewed the patient's lab results. Reviewed labs which show mild leukopenia otherwise unremarkable. 10/15/22 12:32 10/15/22 12:33 Labs: Lab Results 10/15/22 10/15/22 10/15/22 Range/Units 12:03 12:32 12:32 WBC 3.5 L (4.8-10.8) X10*3/uL RBC 3.96 L (4.20-5.50) X10*6/uL Hgb 11.9 L (12.0-16.0) g/dl Hct 36.2 L (37.0-47.0) % MCV 91.4 (80.0-98.0) fL MCH 30.1 (27.0-33.0) pg MCHC 32.9 (31.0-35.0) g/dl RDW 11.9 (11.0-16.0) % Plt Count 172 (160-400) X10*3/uL MPV 10.5 (9.4-12.3) fL Immature Gran % (Auto) 0.3 (0.0-0.4) % Neut % (Auto) 55.6 (45-73) % Lymph % (Auto) 33.8 (20-40) % Wright % (Auto) 8.0 (2-11) % Eos % (Auto) 2.0 (0-4) % Baso % (Auto) 0.3 (0-2) % Lymph # (Auto) 1.2 (1.2-4.9) X10*3/uL Wright # (Auto) 0.3 (0.1-1.2) X10*3/uL Eos # (Auto) 0.1 (0.0-0.4) X10*3/uL Baso # (Auto) 0.0 (0.0-0.2) X10*3/uL Abs Immat Gran (auto) 0.01 (0.00-0.03) X10*3/uL Absolute Neuts (auto) 2.0 (2.0-8.3) x10*3/uL Absolute Nucleated RBC 0.000 (0.0-0.012) X10*3/uL Nucleated RBC % (auto) 0.0 (0.0-0.2) /100WBC PT 19.5 H (11.1-13.3) SEC INR 1.6 H (0.9-1.1) APTT (26.0-36.4) SEC Sodium (135-145) mmol/L Potassium (3.3-5.1) mmol/L Chloride (96-108) mmol/L Carbon Dioxide (22-29) mmol/L Anion Gap (12-20) BUN (9-16) mg/dL Creatinine (0.5-1.4) mg/dL Estim Creat Clear Calc Estimated GFR Random Glucose (60-115) mg/dL Calcium (8.4-10.2) mg/dL Magnesium (1.6-2.6) mg/dL Total Bilirubin (0.0-1.0) mg/dL Direct Bilirubin (0.0-0.5) mg/dL AST (5-31) U/L ALT (0-31) U/L Alkaline Phosphatase (39-117) U/L Total Creatine Kinase (26-140) U/L Troponin I High Sens (<3.5-17.0) ng/L B-Natriuretic Peptide (<100) pg/mL Total Protein (6.5-8.0) g/dL Albumin (3.5-5.0) g/dL Beta HCG, Quant mIU/mL Urine Color Urine Appearance Urine pH (5.0-9.0) Ur Specific [place] (1.005-1.025) Urine Protein (Neg-Trace) mg/dL Urine Glucose (UA) (Negative) mg/dL Urine Ketones (Negative) mg/dL Urine Blood (Negative) Urine Nitrite (Negative) Ur Leukocyte Esterase (Negative) COVID-19 (JUAN) Negative (Negative) COVID-19 Clin Com See Note 10/15/22 10/15/22 10/15/22 Range/Units 12:33 13:13 13:13 WBC (4.8-10.8) X10*3/uL RBC (4.20-5.50) X10*6/uL Hgb (12.0-16.0) g/dl Hct (37.0-47.0) % MCV (80.0-98.0) fL MCH (27.0-33.0) pg MCHC (31.0-35.0) g/dl RDW (11.0-16.0) % Plt Count (160-400) X10*3/uL MPV (9.4-12.3) fL Immature Gran % (Auto) (0.0-0.4) % Neut % (Auto) (45-73) % Lymph % (Auto) (20-40) % Wright % (Auto) (2-11) % Eos % (Auto) (0-4) % Baso % (Auto) (0-2) % Lymph # (Auto) (1.2-4.9) X10*3/uL [place] # (Auto) (0.1-1.2) X10*3/uL Eos # (Auto) (0.0-0.4) X10*3/uL Baso # (Auto) (0.0-0.2) X10*3/uL Abs Immat Gran (auto) (0.00-0.03) X10*3/uL Absolute Neuts (auto) (2.0-8.3) x10*3/uL Absolute Nucleated RBC (0.0-0.012) X10*3/uL Nucleated RBC % (auto) (0.0-0.2) /100WBC PT (11.1-13.3) SEC INR (0.9-1.1) APTT (26.0-36.4) SEC Sodium 143 (135-145) mmol/L Potassium 4.2 (3.3-5.1) mmol/L Chloride 110 H (96-108) mmol/L Carbon Dioxide 24 (22-29) mmol/L Anion Gap 13 (12-20) BUN 7 L (9-16) mg/dL Creatinine 0.78 (0.5-1.4) mg/dL Estim Creat Clear Calc 87.7 Estimated GFR > 60 Random Glucose 101 (60-115) mg/dL Calcium 9.1 (8.4-10.2) mg/dL Magnesium 2.1 (1.6-2.6) mg/dL Total Bilirubin 0.4 0.3 (0.0-1.0) mg/dL Direct Bilirubin 0.1 (0.0-0.5) mg/dL AST 15 16 (5-31) U/L ALT 5 5 (0-31) U/L Alkaline Phosphatase 74 70 (39-117) U/L Total Creatine Kinase 53 (26-140) U/L Troponin I High Sens < 2.7 (<3.5-17.0) ng/L B-Natriuretic Peptide (<100) pg/mL Total Protein 6.4 L 6.0 L (6.5-8.0) g/dL Albumin 3.5 3.3 L (3.5-5.0) g/dL Beta HCG, Quant < 2 mIU/mL Urine Color Urine Appearance Urine pH (5.0-9.0) Ur Specific [place] (1.005-1.025) Urine Protein (Neg-Trace) mg/dL Urine Glucose (UA) (Negative) mg/dL Urine Ketones (Negative) mg/dL Urine Blood (Negative) Urine Nitrite (Negative) Ur Leukocyte Esterase (Negative) COVID-19 (JUAN) (Negative) COVID-19 Clin Com 10/15/22 10/17/22 10/20/22 Range/Units 17:50 15:14 12:06 WBC 5.1 (4.8-10.8) X10*3/uL RBC 4.27 (4.20-5.50) X10*6/uL Hgb 13.0 (12.0-16.0) g/dl Hct 38.8 (37.0-47.0) % MCV 90.9 (80.0-98.0) fL MCH 30.4 (27.0-33.0) pg MCHC 33.5 (31.0-35.0) g/dl RDW 11.9 (11.0-16.0) % Plt Count 202 (160-400) X10*3/uL MPV 10.4 (9.4-12.3) fL Immature Gran % (Auto) 0.4 (0.0-0.4) % Neut % (Auto) 42.7 L (45-73) % Lymph % (Auto) 47.0 H (20-40) % Wright % (Auto) 6.1 (2-11) % Eos % (Auto) 3.2 (0-4) % Baso % (Auto) 0.6 (0-2) % Lymph # (Auto) 2.4 (1.2-4.9) X10*3/uL Wright # (Auto) 0.3 (0.1-1.2) X10*3/uL Eos # (Auto) 0.2 (0.0-0.4) X10*3/uL Baso # (Auto) 0.0 (0.0-0.2) X10*3/uL Abs Immat Gran (auto) 0.02 (0.00-0.03) X10*3/uL Absolute Neuts (auto) 2.2 (2.0-8.3) x10*3/uL Absolute Nucleated RBC 0.000 (0.0-0.012) X10*3/uL Nucleated RBC % (auto) 0.0 (0.0-0.2) /100WBC PT (11.1-13.3) SEC INR (0.9-1.1) APTT (26.0-36.4) SEC Sodium (135-145) mmol/L Potassium (3.3-5.1) mmol/L Chloride (96-108) mmol/L Carbon Dioxide (22-29) mmol/L Anion Gap (12-20) BUN (9-16) mg/dL Creatinine (0.5-1.4) mg/dL Estim Creat Clear Calc Estimated GFR Random Glucose (60-115) mg/dL Calcium (8.4-10.2) mg/dL Magnesium (1.6-2.6) mg/dL Total Bilirubin (0.0-1.0) mg/dL Direct Bilirubin (0.0-0.5) mg/dL AST (5-31) U/L ALT (0-31) U/L Alkaline Phosphatase (39-117) U/L Total Creatine Kinase (26-140) U/L Troponin I High Sens (<3.5-17.0) ng/L B-Natriuretic Peptide 24 (<100) pg/mL Total Protein (6.5-8.0) g/dL Albumin (3.5-5.0) g/dL Beta HCG, Quant mIU/mL Urine Color Yellow Urine Appearance Clear Urine pH 8.0 (5.0-9.0) Ur Specific [place] 1.020 (1.005-1.025) Urine Protein Negative (Neg-Trace) mg/dL Urine Glucose (UA) Negative (Negative) mg/dL Urine Ketones Trace (Negative) mg/dL Urine Blood Negative (Negative) Urine Nitrite Negative (Negative) Ur Leukocyte Esterase Negative (Negative) COVID-19 (JUAN) (Negative) COVID-19 Clin Com 10/20/22 10/20/22 10/20/22 Range/Units 12:06 12:06 12:06 WBC (4.8-10.8) X10*3/uL RBC (4.20-5.50) X10*6/uL Hgb (12.0-16.0) g/dl Hct (37.0-47.0) % MCV (80.0-98.0) fL MCH (27.0-33.0) pg MCHC (31.0-35.0) g/dl RDW (11.0-16.0) % Plt Count (160-400) X10*3/uL MPV (9.4-12.3) fL Immature Gran % (Auto) (0.0-0.4) % Neut % (Auto) (45-73) % Lymph % (Auto) (20-40) % Wright % (Auto) (2-11) % Eos % (Auto) (0-4) % Baso % (Auto) (0-2) % Lymph # (Auto) (1.2-4.9) X10*3/uL Wright # (Auto) (0.1-1.2) X10*3/uL Eos # (Auto) (0.0-0.4) X10*3/uL Baso # (Auto) (0.0-0.2) X10*3/uL Abs Immat Gran (auto) (0.00-0.03) X10*3/uL Absolute Neuts (auto) (2.0-8.3) x10*3/uL Absolute Nucleated RBC (0.0-0.012) X10*3/uL Nucleated RBC % (auto) (0.0-0.2) /100WBC PT 15.0 H D (11.1-13.3) SEC INR 1.2 H (0.9-1.1) APTT 38.2 H (26.0-36.4) SEC Sodium 141 (135-145) mmol/L Potassium 4.3 (3.3-5.1) mmol/L Chloride 110 H (96-108) mmol/L Carbon Dioxide 25 (22-29) mmol/L Anion Gap 10 L (12-20) BUN 13 (9-16) mg/dL Creatinine 0.72 (0.5-1.4) mg/dL Estim Creat Clear Calc 95.0 Estimated GFR > 60 Random Glucose 109 (60-115) mg/dL Calcium 9.2 (8.4-10.2) mg/dL Magnesium 1.9 (1.6-2.6) mg/dL Total Bilirubin 0.2 (0.0-1.0) mg/dL Direct Bilirubin (0.0-0.5) mg/dL AST 15 (5-31) U/L ALT 6 (0-31) U/L Alkaline Phosphatase 68 (39-117) U/L Total Creatine Kinase (26-140) U/L Troponin I High Sens < 2.7 (<3.5-17.0) ng/L B-Natriuretic Peptide (<100) pg/mL Total Protein 6.6 (6.5-8.0) g/dL Albumin 3.6 (3.5-5.0) g/dL Beta HCG, Quant mIU/mL Urine Color Urine Appearance Urine pH (5.0-9.0) Ur Specific [place] (1.005-1.025) Urine Protein (Neg-Trace) mg/dL Urine Glucose (UA) (Negative) mg/dL Urine Ketones (Negative) mg/dL Urine Blood (Negative) Urine Nitrite (Negative) Ur Leukocyte Esterase (Negative) COVID-19 (JUAN) (Negative) COVID-19 Clin Com 10/20/22 Range/Units 14:40 WBC (4.8-10.8) X10*3/uL RBC (4.20-5.50) X10*6/uL Hgb (12.0-16.0) g/dl Hct (37.0-47.0) % MCV (80.0-98.0) fL MCH (27.0-33.0) pg MCHC (31.0-35.0) g/dl RDW (11.0-16.0) % Plt Count (160-400) X10*3/uL MPV (9.4-12.3) fL Immature Gran % (Auto) (0.0-0.4) % Neut % (Auto) (45-73) % Lymph % (Auto) (20-40) % Wright % (Auto) (2-11) % Eos % (Auto) (0-4) % Baso % (Auto) (0-2) % Lymph # (Auto) (1.2-4.9) X10*3/uL Wright # (Auto) (0.1-1.2) X10*3/uL Eos # (Auto) (0.0-0.4) X10*3/uL Baso # (Auto) (0.0-0.2) X10*3/uL Abs Immat Gran (auto) (0.00-0.03) X10*3/uL Absolute Neuts (auto) (2.0-8.3) x10*3/uL Absolute Nucleated RBC (0.0-0.012) X10*3/uL Nucleated RBC % (auto) (0.0-0.2) /100WBC PT (11.1-13.3) SEC INR (0.9-1.1) APTT (26.0-36.4) SEC Sodium (135-145) mmol/L Potassium (3.3-5.1) mmol/L Chloride (96-108) mmol/L Carbon Dioxide (22-29) mmol/L Anion Gap (12-20) BUN (9-16) mg/dL Creatinine (0.5-1.4) mg/dL Estim Creat Clear Calc Estimated GFR Random Glucose (60-115) mg/dL Calcium (8.4-10.2) mg/dL Magnesium (1.6-2.6) mg/dL Total Bilirubin (0.0-1.0) mg/dL Direct Bilirubin (0.0-0.5) mg/dL AST (5-31) U/L ALT (0-31) U/L Alkaline Phosphatase (39-117) U/L Total Creatine Kinase (26-140) U/L Troponin I High Sens (<3.5-17.0) ng/L B-Natriuretic Peptide (<100) pg/mL Total Protein (6.5-8.0) g/dL Albumin (3.5-5.0) g/dL Beta HCG, Quant mIU/mL Urine Color Yellow Urine Appearance Clear Urine pH 5.5 (5.0-9.0) Ur Specific [place] 1.015 (1.005-1.025) Urine Protein Negative (Neg-Trace) mg/dL Urine Glucose (UA) Negative (Negative) mg/dL Urine Ketones Negative (Negative) mg/dL Urine Blood Negative (Negative) Urine Nitrite Negative (Negative) Ur Leukocyte Esterase Negative (Negative) COVID-19 (JUAN) (Negative) COVID-19 Clin Com Independent Interpretation I performed an independent interpretation of an: EKG, Plain X-Ray, Ultrasound and CT Scan Interpretation: I independently reviewed the EKG which shows normal sinus rhythm with a rate of 78, normal [place], normal QRS normal QT I independently reviewed the US of the RLE/CT chest/abdomen/pelvis, CXR and agree with the rad report Radiology Impression Discussion of test interpretation with radiology: I have reviewed the radiologist's reading. Radiologist Impression: Launch?Image [id number] [place] [address] Ultrasound Report Signed Patient: Chiquita Bee MR#: [id number] : 1990 Acct:[id number] Age/Sex: 31 / F ADM Date: 10/15/22 Loc: HO.ED Attending Dr: Ordering Physician: Ashley Bee NP Date of Service: 10/15/22 Procedure(s): US venous duplex LE BI Accession Number(s): [id number] cc: Ashley Bee NP~ EXAMINATION:? US VENOUS ULTRASOUND WITH DOPPLER LOWER EXTREMITY, BILATERAL CLINICAL INFORMATION:? Leg pain, PE recently. COMPARISON:? None available. TECHNIQUE: Ultrasound of the deep veins is performed from the hip to the calf with compression sonography and color and pulse Doppler assessment. Spectral analysis with color-flow imaging is performed. FINDINGS: RIGHT: Positive deep venous thrombosis is seen in the distal segment of the right femoral vein as well as the popliteal and peroneal veins. The right common femoral, profunda femoral, proximal femoral, mid femoral and posterior tibial veins are patent. No right popliteal cyst. The subcutaneous soft tissues are unremarkable. LEFT: There is no evidence for deep venous thrombosis in the left common femoral, profunda femoral, femoral, popliteal and calf veins. No left popliteal cyst. The subcutaneous soft tissues are unremarkable. If the patient's symptoms persist, followup ultrasound in 5 days 7 days might be of value to exclude proximal propagation from a non-visualized calf vein. US/US venous duplex LE BI IMPRESSION: 1. Positive deep venous thrombosis in the right lower extremity as detailed above. 2. No evidence for deep venous thrombosis in the left lower extremity. [id number] [place] [address] CT Scan Report Signed Patient: Chiquita Bee MR#: [id number] : 1990 Acct:[id number] Age/Sex: 31 / F ADM Date: 10/15/22 Loc: .ED Attending Dr: Ordering Physician: Ashley eBe NP Date of Service: 10/15/22 Procedure(s): CT angio chest PE protocol Accession Number(s): [id number] cc: Ashley Bee NP~ EXAMINATION: CT ANGIOGRAM OF THE CHEST WITH AND WITHOUT CONTRAST (CT PULMONARY ANGIOGRAM FOR PE) CLINICAL INFORMATION: Reason for Exam +DVT, syncope, eval for saddle PE COMPARISON: None available.? ? TECHNIQUE: Prior to contrast administration, noncontrast localization images were obtained. ? Subsequently, multidetector volumetric imaging was performed from the thoracic inlet to below the diaphragms following the administration of 80 mL Omnipaque 350 intravenous contrast. No contrast reaction reported Sagittal, coronal, and MIP oblique sagittal reformatted images were obtained on the CT workstation, uploaded to PACS, and reviewed. This CT examination was performed using dose optimization techniques as appropriate, variously including the following: *Automated exposure control *Adjustment of mA and/or kV according to patient size (this includes techniques or standardized protocols for targeted exams where dose is matched to indication/reason for exam; i.e. extremities or head) *Use of iterative reconstruction technique Total exam dose-length product 412 mGy-cm FINDINGS: QUALITY OF STUDY/CONTRAST BOLUS: Satisfactory. PULMONARY ARTERIES: There are multiple filling defects in bilateral lower lobe pulmonary artery branches consistent with PE. There is thrombus visualized in the proximal right upper lobe pulmonary artery branches well.? THORACIC AORTA: No aneurysm. LUNG: The lungs are expanded with compressive atelectasis in both lower lobes posterior segments and minimal platelike atelectasis in in bilateral lung bases. PLEURA: There is bilateral small pleural effusions. MEDIASTINUM: Normal heart size.? No pericardial effusion.? No hilar or mediastinal lymphadenopathy.? No evidence of septal bowing or right heart strain. CORONARY ARTERY CALCIFICATION: None visualized on this study. CHEST WALL/AXILLA: No axillary or internal mammary lymphadenopathy. OSSEOUS STRUCTURES: No acute or suspicious osseous abnormality.? UPPER ABDOMEN: Visualized liver and spleen appears unremarkable. No reflux of contrast into the hepatic veins to suggest elevated right heart pressures. CT/CT angio chest PE protocol IMPRESSION: Bilateral PE. ? Bilateral small pleural effusions with compressive and platelike atelectasis in both lower lobes. ? Results were immediately called by phone to Ashley Jansen NP? at 3:47 PM. ? VTE: positive Launch?Image [address] [address] XRay Report Signed Patient: Chiquita Bee MR#: [id number] : 1990 Acct:[id number] Age/Sex: 31 / F ADM Date: 10/15/22 Loc: HO.ED Attending Dr: Ordering Physician: Ashley Bee NP Date of Service: 10/15/22 Procedure(s): XR chest 2V Accession Number(s): [id number] cc: Ashley Bee NP~ EXAMINATION: CHEST 2 VIEWS CLINICAL INFORMATION: Near syncope. COMPARISON: No recent pertinent prior studies are available for comparison. TECHNIQUE: AP frontal and lateral views of the chest obtained? FINDINGS: The lungs are hypoexpanded. No focal infiltrate, effusion, edema, or pneumothorax. Cardiac and mediastinal silhouettes are within normal limits for technique. No acute bony abnormality seen with old healed lateral left seventh rib fracture again noted. XR/XR chest 2V IMPRESSION: Hypoexpanded but otherwise no evidence of acute disease. ? [address] [address] [address] Scan Report Signed Patient: Chiquita Bee MR#: [id number] : 1990 Acct:[id number] Age/Sex: 31 / F ADM Date: 10/15/22 Loc: .ED Attending Dr: Ordering Physician: Ashley Bee NP Date of Service: 10/15/22 Procedure(s): CT head/brain wo IV con Accession Number(s): [id number] cc: Ashley Bee NP~ CT head/brain wo IV con CLINICAL INFORMATION: Reason for Exam ISSA COMPARISON: No prior CT scan available for comparison. TECHNIQUE: Department standard protocol. This CT examination was performed using dose optimization techniques as appropriate, variously including the following: *Automated exposure control *Adjustment of mA and/or kV according to patient size (this includes techniques or standardized protocols for targeted exams where dose is matched to indication/reason for exam; i.e. extremities or head) *Use of iterative reconstruction technique DLP: 659 mGy-cm FINDINGS: ? CEREBRAL HEMISPHERES: There is no evidence of intra-axial or extra-axial mass, hemorrhage or acute infarct. BRAIN PARENCHYMA: Normal [place]-white matter differentiation. SUBDURAL SPACE: No bleed. BASAL GANGLIA AND PINEAL GLAND: Unremarkable VENTRICLES: Symmetric and normal in size. CEREBELLUM AND BRAINSTEM: No space-occupying mass, hemorrhage or acute infarct. CEREBELLOPONTINE ANGLES: No lesion found. ORBITS: No intraorbital mass. VESSELS: Unremarkable SKULL BASE: Unremarkable INCLUDED SINUSES AT SKULL BASE: Clear SKULL AND SKIN: No fracture or bone lesion found. CT/CT head/brain wo IV con IMPRESSION: No CT evidence of intracranial space-occupying mass, bleed or infarct. Independent Historian Clinical information obtained from an independent historian. History obtained from or confirmed by: EMS External Record Review External record reviewed: Outpatient record I did receive records from [facility]. Patient was admitted October 13 and discharged on October 14. Her note patient has a history of lumbar laminectomy for STD 2021 with recent baclofen pump implantation with General surgery at [facility] on October 06 for pelvic floor spasticity presented to [facility] with ongoing urinary retention for which she had been taking baclofen, Valium and tizanidine 4. Patient was concerned during this admission that her baclofen pump was not working and the catheter may have migrated. She was incidentally found to have bilateral pulmonary embolisms and was admitted to medicine and transition to [facility]. She did have baclofen pump interrogation and was seen by Neurosurgery and there was no baclofen pump m alfunction noted. Discharge Plan Discharge Clinical Impression: DVT (deep venous thrombosis), Pulmonary emboli, Weakness Patient Disposition: Left Against Medical Advice Instructions: Deep Vein Thrombosis (ED) Additional Instructions: Continue your eliquis Consider decreasing your dose of valium Prescriptions: No Action diazepam 2 mg Tablet 2 mg PO 6XD PRN (Reason: Muscle Spasm) pregabalin 150 mg Capsule 150 mg PO 0100,0700,1300,1900 Rx Instructions: 0100,0700,1300,1900 famotidine 40 mg Tablet 40 mg PO BID@0700,1900 ondansetron 4 mg Tablet,Disintegrating 4 mg PO Q12H PRN (Reason: Nausea) omeprazole 20 mg Capsule,Delayed Release(Dr/Ec) 20 mg PO DAILY cetirizine 10 mg Tablet 10 mg PO BID baclofen 10 mg Tablet 20 mg PO 01,07,, Rx Instructions: 0700, 1300, 1900, 0100 tamsulosin 0.4 mg Capsule 0.8 mg PO DAILY cevimeline 30 mg Capsule 1 cap PO TID@0700,1300,1900 fluticasone propion-salmeterol [Advair Diskus] 250-50 mcg/dose Blister With Device 1 inh INHALATION BID pyridostigmine bromide 60 mg Tablet 60 mg PO BID@0100,1300 Rx Instructions: at lunch and at bedtime cromolyn 100 mg/5 mL concentrate 10 ml PO QID cholecalciferol (vitamin D3) 125 mcg (5,000 unit) Tablet 125 mcg PO DAILY lorazepam 0.5 mg Tablet 0.5 mg PO Q6H PRN (Reason: Anxiety) sumatriptan succinate 50 mg Tablet 50 mg PO DAILY PRN (Reason: Migraine Headache) Rx Instructions: do not exceed 4 doses per 24 hrs albuterol sulfate 90 mcg/actuation Hfa Aerosol Inhaler 2 puff INHALATION Q4H PRN (Reason: Respiratory Distress) cromolyn [Nasalcrom] 5.2 mg/spray (4 %) [place],Non-Aerosol 1 spray INTRANASAL BID tizanidine 2 mg tablet 3 mg PO Q8H simethicone [Gas Relief Extra Strength] 125 mg capsule 125 mg PO DAILY PRN (Reason: Gastrointestinal Spasms Or Cramping) fexofenadine [Yvonne] 180 mg Tablet 180 mg PO DAILY ascorbic acid (vitamin C) [Vitamin C] 500 mg Tablet 500 mg PO BID pyridostigmine bromide 60 mg tablet 90 mg PO BID@0700,1900 Rx Instructions: in the morning and at dinner docusate sodium 100 mg Capsule 100 mg PO BID PRN (Reason: Constipation) montelukast 10 mg Tablet 10 mg PO DAILY hydroxyzine HCl 25 mg tablet 25 mg PO 0100,0700,1300,1900 Rx Instructions: 0100, 0700, 1300, 1900, codeine sulfate 30 mg tablet 30 mg PO Q4H PRN (Reason: pain) azelastine 137 mcg (0.1 %) aerosol,spray 1 spray intranasal BID carbidopa-levodopa 25-100 mg tablet 0.5 tab PO TID@0700,1300,1900 magnesium glycinate 100 mg Tablet 400 mg PO DAILY omega [id number]-wre-fish oil [Fish Oil] 1,000 mg (120 mg-180 mg) Capsule 1 cap PO DAILY Eliquis 5 mg tablet 5 mg PO BID@0700,1900 quercetin 500 mg Capsule 1,600 mg PO DAILY Referrals: Fahad Wood MD [Physician] - 1 week Stand Alone Forms: Against Medical Advice
--- NOTE | 2022-10-15 12:12 | ECG_ITS ---
Test Reason : CHEST PAIN Blood Pressure : / mmHG Vent. Rate : 078 BPM Atrial Rate : 078 BPM P-R Int : 166 ms QRS Dur : 088 ms QT Int : 412 ms P-R-T Axes : 031 018 029 degrees QTc Int : 469 ms Normal sinus rhythm Nonspecific ST and T wave abnormality Borderline ECG No previous ECGs available Referred By: Ashley Jansen Electronically Signed By:JANET ROSSI
[2022-10-15 12:38] LABS: MANUAL DIFF FLAG NO
[2022-10-15 12:42] LABS: Basophils Percent Auto 0.3 % (0-2); Eosinophils Absolute Auto 0.1 X10*3/uL (0.0-0.4); Hematocrit 36.2 % (37.0-47.0); Hemoglobin 11.9 g/dl (12.0-16.0); Imm Gran Abs Auto 0.01 X10*3/uL (0.00-0.03); Imm Gran Pct Auto 0.3 % (0.0-0.4); Lymphocytes Absolute Auto 1.2 X10*3/uL (1.2-4.9); Lymphocytes Percent Auto 33.8 % (20-40); Mean Corpuscular HGB Conc 32.9 g/dl (31.0-35.0); Mean Corpuscular Hemoglobin 30.1 pg (27.0-33.0); Mean Corpuscular Volume 91.4 fL (80.0-98.0); Mean Platelet Volume 10.5 fL (9.4-12.3); Monocytes Absolute Auto 0.3 X10*3/uL (0.1-1.2); Neutrophils Percent Auto 55.6 % (45-73); Platelet Count 172 X10*3/uL (160-400); Red Blood Count 3.96 X10*6/uL (4.20-5.50); Red Cell Distribution Width 11.9 % (11.0-16.0); White Blood Count 3.5 X10*3/uL (4.8-10.8)
[2022-10-15 12:48] LABS: INTERNATIONAL NORM RATIO 1.6 (0.9-1.1); Prothrombin Time 19.5 SEC (11.1-13.3)
[2022-10-15 12:53] LABS: COVID-19 Test Negative (Negative); IDNOW Serial# 9DB6401D
[2022-10-15 12:55] LABS: Alanine Aminotransferase 5 U/L (0-31); Albumin Level 3.5 g/dL (3.5-5.0); Alkaline Phosphatase 74 U/L (39-117); Anion Gap 13 (12-20); Aspartate Amino Transferase 15 U/L (5-31); Bilirubin Total 0.4 mg/dL (0.0-1.0); Blood Urea Nitrogen 7 mg/dL (9-16); Calcium 9.1 mg/dL (8.4-10.2); Carbon Dioxide 24 mmol/L (22-29); Chloride 110 mmol/L (96-108); Creatinine Clr Calc Pharmacy 87.7; Estimated Glomerular Filt Rate > 60; Glucose Random 101 mg/dL (60-115); Potassium 4.2 mmol/L (3.3-5.1); Sodium 143 mmol/L (135-145); Total Protein 6.4 g/dL (6.5-8.0)
[2022-10-15] MEDS: 0.9 % Sodium Chloride 1,000 ML 999 ML IV (13:13)
--- OUTSIDE RECORDS SUMMARY | 2022-10-15 13:26 | XMS_ITS ---
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 Active 62389109 Problem Postconcussion syndrome F07.81 Active 29955125 Problem TBI (traumatic brain injury) S06.9X9A Active 770272749 Problem Attention and concentration deficit R41.840 Active 719107570 Problem Migraine G43.909 Active 08514816 Problem PTSD (post-traumatic stress disorder) F43.10 Active 56436685 Problem Dysautonomia G90.9 Active 60369370 Problem Dystonia G24.9 Active 97299513 Problem Depression F32.9 Active 275044910 ALLERGIES Substance Reaction Event Type Date Status LaMICtal Unknown Drug Allergy Jun, Active Venlafaxine Unknown Drug Allergy Jun, Active Cipro Unknown Drug Allergy Jun, Active Pilocarpine Unknown Drug Allergy Jun, Active Gabapentin Unknown Drug Allergy Jun, Active Topiramate Unknown Drug Allergy Jun, Active Bupropion Unknown Drug Allergy Jun, Active ENCOUNTERS Encounter Location Date Diagnosis [address] [address] Aug, [address] [address] Jun, [address] [address] Jun, [address] [address] Jun, [address] [address] Jun, Postconcussion syndrome F07.81 ; JAE (obstructive sleep apnea) G47.33 ; Attention and concentration deficit R41.840 ; Depression F32.9 ; Migraine G43.909 ; Dysautonomia G90.9 ; PTSD (post-traumatic stress disorder) F43.10 ; 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 and Tethered cord syndrome Q06.[address] [address] Jun, [address] [address] May, [address] [address] Mar, [address] [address] Mar, JAE (obstructive sleep apnea) G47.33 ; Postconcussion syndrome F07.81 ; PTSD (post-traumatic stress disorder) F43.10 ; Migraine G43.909 ; Dystonia G24.9 ; 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 ; Tethered cord syndrome Q06.8 ; Depression F32.9 ; Attention and concentration deficit R41.840 and Dysautonomia G90.[address] [address] 30 Mar, [address] [address] Feb, [facility] [address] [address] Dec, IMMUNIZATIONS No Known Immunizations SOCIAL HISTORY Qualifiers Date Former Smoker REASON FOR REFERRAL FUNCTIONAL STATUS PLAN OF CARE Activity Details VITAL SIGNS Heart Rate 81 /min 2022-04-12 Weight 170 lbs 2022-04-12 BMI 34.33 kg/m2 2022-04-12 Height 59 in 2022-07-07 Height 59 in 2022-04-12 Blood pressure systolic 131 mm Hg Blood pressure diastolic 82 mm Hg 2022-03 MEDICATIONS Medication Instructions Dosage Frequency Start Date End Date Duration Status Tamsulosin HCl 0.4 MG TAKE ONE CAPSULE BY MOUTH EVERY DAY 90 Active Modafinil 100 MG Orally Once a day 1/2 tablet in the morning 24h Active Iron Slow Release 143 (45 Fe) MG TAKE ONE TABLET BY MOUTH EVERY MORNING WITH BREAKFAST 30 Active CPAP (New Autotitrating) Autotitrating Machine All tubing and supplies Mask of patient's preference Warm Humidification Mar, Active Baclofen 10 MG TAKE TWO TABLETS BY MOUTH FOUR TIMES A DAY 30 Active Cevimeline HCl 30 MG TAKE ONE CAPSULE BY MOUTH THREE TIMES A DAY 30 Active Pyridostigmine [place] 60 MG TAKE ONE TABLET BY MOUTH FOUR TIMES A DAY (AT 8AM, 1P.M, 6PM, AND 11PM) 30 Active Pregabalin 150 MG Oral Three times a day 1 capsule 8h Active Linzess 145 MCG TAKE ONE CAPSULE BY MOUTH EVERY DAY BEFORE BREAKFAST 30 Nadia alfaro D-3-5 125 MCG (5000 UT) TAKE ONE CAPSULE BY MOUTH EVERY DAY 90 Active Restasis 0.05 % ADMINISTER ONE DROP INTO BOTH EYES IN THE MORNING AND AT BEDTIME 30 Active Testosterone 25 MG/2.5GM (1%) APPLY ONE PACKET TOPICALLY ONCE A DAY 30 Active Azelastine HCl 137 MCG/SPRAY INSTILL 2 SPRAYS INTRANASALLY TWICE A DAY DIRECTED 25 Active Acetaminophen-Co deine 300-30 MG TAKE ONE TABLET BY MOUTH EVERY 6 HOURS NEEDED FOR PAIN 30 Active Quercetin 50 MG Orally Once a day 2 tablet 24h Active Lidocaine 5 % PLACE 1 PATCH ONTO THE SKIN DAILY REMOVE AND DISCARD PATCH WITHIN 12 HOURS OR DIRECTED BY 30 Nadia alfaro Vitamin C 1000 MG Orally Once a day 1 tablet 24h 30 day(s) Active Carbidopa-Levodo pa 25-100 MG TAKE 1/2 TABLET IN THE MORNING AND 1/2 TABLET AT NOON. 90 Active Florastor 250 MG TAKE ONE CAPSUL E BY MOUTH EVERY DAY 30 Not-Taki ng ZyrTEC Allergy 10 MG Orally Once a day 1 tablet 24h 30 day(s) Active Ondansetron 4 MG DISSOLVE ONE TABLET BY MOUTH EVERY 12 HOURS NEEDED FOR NAUSEA 15 Active Cromolyn Sodium 100 MG/5ML TAKE 15 ML (300 MG) BY MOUTH FOUR TIMES A DAY 30 Active diazePAM 2 MG TAKE 1 TABLET BY MOUTH 4 TIMES A DAY NEEDED FOR MUSCLE SPASM 30 Active Zinc 100 MG Orally Once a day 1 tablet 24h 30 day(s) Active Cetirizine HCl 10 MG TAKE ONE TABLET BY MOUTH EVERY DAY 30 Unknown Senna Plus 8.6-50 MG TAKE TWO TABLETS BY MOUTH TWICE A DAY 7 Not-Taki ng Famotidine 40 MG TAKE ONE TABLET BY MOUTH TWICE A DAY 30 Active Advair Diskus 250-50 MCG/ACT INHALE ONE PUFF BY MOUTH TWICE A DAY 30 Not-Taki ng Omeprazole 20 MG TAKE ONE CAPSUL E BY MOUTH EVERY DAY 90 Active hydrOXYzine HCl 10 MG TAKE TWO TABLETS BY MOUTH AT BEDTIME 30 Active Fluticasone Propionate 50 MCG/ACT INSTILL 2 SPRAYS INTO BOTH NOTRILS ONCE DAILY 30 Active Lyrica 75 MG Orally Once a day 1 capsule 24h Active SUMAtriptan Succinate 50 MG TAKE ONE TABLET BY MOUTH NEEDED FOR MIGRAINE (50 MG TOTAL) 23 Active PROCEDURES No Known procedures RESULTS No Results REASON FOR VISIT 3 month FU, CPAP FYI , RE:Re:RE:Genesight Report, Re:RE:Genesight Report, Genesight Report, f/u TBI, Migraines, CPAP prescription, RSC to 07/07/2022 2 month f/u, Rsc with JE, CPAP questions , [employer]: Migraines/Multiple Concussions, Confirm Appt, [employer]: Migrianes/Multiple Concussions, Sooner [employer] apt than 04/12/22, [employer]: TBI/Migraines, Needs call back from office Insurance Providers Health Insurance Type Health Plan Insurance Address Health Plan Insurance Phone Health Plan Insurance Name Health Plan Coverage Dates Member ID Patient Relationship to Subscriber Patient Address Patient Phone Patient Name Patient Date of Subscriber ID Subscriber Name Subscriber Date of Group No [facility] [address] [facility] [address] [employer] [facility] self Chiquita Chavez'Brien [id number] [facility] [address] [facility] [address] [facility] self Chiquita Bee [id number]
--- OUTSIDE RECORDS SUMMARY | 2022-10-15 13:26 | XMS_ITS | Patient Health Record ---
Author Name Unknown [facility] Address [address] [address] Care Team Providers Care Inside Wireman Name Role Phone Balbina Lopez Primary Care Provider Unavailabl e Stu Mojica Unavailable [phone] Vianey Holder Unavailable [phone] Timo Becerra Unavailable [phone] Elin Box Unavailable [phone] ALLERGIES Allergen (clinical drug ingredient) Drug/Non Drug Allergy documented on EMR Reaction Allergy Type Onset Date Status lamotrigine LaMICtal Unknown Drug Allergy Activ e topiramate topiramate Unknown Drug Allergy Activ e pilocarpine Salagen Unknown Drug Allergy Activ e REASON FOR REFERRAL Reason seizure Diagnosis 1 Seizure (R56.9) Referring Provider First Name Balbina Referring Provider Last Name John Referred [facility], Referred Provider Timo Becerra Referred Address [address] [place] [address],[address],[address], Referred Provider Specialty Neurology General Notes Magaly Thakkar 11/23/2021 08:31:05 AM >sent referral request, Magaly Thakkar 12/17/2021 11:25:30 AM >SENT 2ND REQUEST Referral Priority Routine Reason g43 Diagnosis 1 Chronic migraine (G4 3.709) Referring Provider First Name Balbina Referring Provider Last Name John Referred [facility] Referred Provider Stu Mojica Referred Address [address] [facility],[address],[address], Referred Provider Specialty Neurology General Notes Magaly Thakkar 03/22/2022 06:50:31 AM >SENT REFERRAL REQUEST, Magaly Thakkar 04/14/2022 08:46:45 AM >SENT 2ND REQUEST Referral Priority Routine MEDICATIONS Medication SIG (Take, Route, Frequency, Duration) Notes Start Date End Date Status diazapam 2 mg 1 tab(s) orally 4 times a day Active ferrous sulfate 220 mg/5 mL 5 mL orally once a day for 30 day(s) Active Cod Liver Oil Vitamin A and D 1 cap(s) orally once a day for 30 day(s) Active fluticasone 50 mcg/inh 1 puff(s) inhaled 2 times a day for 30 day(s) Unknown cromolyn 10 mg/mL 2 mL by nebulizer 4 times a day for 30 day(s) Active LORazepam 0.5 mg 1 tab(s) orally PRN PRN Unknown carbidopa-levodopa 25 mg-100 mg 1/2 tab orally 3 times a day Active Claritin 10 mg 1 tab(s) orally once a day Unknown cevimeline 30 mg 1 cap(s) orally 3 times a day for 30 day(s) Active diazapam 2.5 mg as directed rectally once Unknown baclofen 10 mg 2 tab(s) orally 4 times a day Active Ajovy Autoinjector 225 mg/1.5 mL as directed subcutaneously once a month for 30 days Unknown Botox 200 unit vial 200 units administer 155 units into head and neck in divided doses intramuscular every 12 weeks for 90 days 02/22/2022 05/18/2023 Active busPIRone 10 mg 1 tab(s) orally 2 times a day for 30 day(s) Unknown hydrOXYzine hydrochloride 10 mg 2 tab(s) orally once a day Active Salagen 5 mg 1 tab(s) orally TID Unknown Lidocaine Hydrochloride, Topical 5% 1 PATCH applied topically once a day for 30 day(s) Active penicillin Unknown Flonase 50 mcg/inh 1 spray(s) in each nostril once a day for 30 day(s) Active saccharomyces boulardii lyo 250 mg 1 cap(s) orally once a day Unknown Melatonin 3 mg 1 tab(s) orally once a day (at bedtime) Unknown SUMAtriptan 50 mg 1 tab(s) PRN Active pyridostigmine 60 mg 1 tab(s) orally 4 times a day 90mg/60mg Active Restasis Active Pepcid 40 mg 1 tab(s) orally 2 times a day Active pregabalin 150 mg 1 cap(s) orally 3 times a day plus 75mg once a day Active magnesium Active ondansetron 4 mg 1 tab(s) orally ever y 8 hours Active Advair Diskus Active Vitamin D3 1,000 iu tab oral once a day for 30 days 5000 Active albuterol 90 mcg/inh 2 puff(s) inhaled prn Active acetaminophen-hydrocod one Unknown tamsulosin 0.4 mg 1 cap(s) orally once a day for 30 day(s) Active Testosterone Gel 2 % As directed Active IMMUNIZATIONS Vaccine Route Administration Date Status Comme nts Covid 19 Pfizer Unknown 07/01/2020 Administered Covid 19 Pfizer Unknown 07/29/2020 Administered SOCIAL HISTORY Tobacco Use: Social History Observation Description Date Details (start date - stop date) Never Smoker NA - NA Sex Assigned At : Social History Observation Description Sex Assigned At Unknown Tobacco Use: Question Answer Notes Do you smoke? never smoker PROBLEMS Problem Type ICD Code Onset Dates Problem Status W/U Status Risk SNOMED Code Notes Problem Chronic migraine (G43.709) Active confirmed Chronic migraine (493013574) Problem Headache syndrome (G44.89) Active confirmed Headache (03053229) Problem Dysautonomia (G90.1) Active confirmed D ysautonomia (34759470) Problem Joint hyperextensibility of multiple sites (M24.80) Active confirmed Generalized benign joint hypermobility (096285859) VITAL SIGNS Blood pressure diastolic 80 mm Hg 10/15/2021 Oximetry 99 % 10/15/2021 Height 69 in 04/29/2022 Blood pressure systolic 110 mm Hg 10/15/2021 Weight 160 lbs 10/15/2021 BMI 23.63 kg/m2 10/15/2021 Encounters Encounter Location Date Provider Diagnosis [facility], [address] [address] 02/22/2022 Timo Becerra [facility], [address] [address] 02/22/2022 Timo Becerra [facility] [address] [place] [phone] 03/25/2022 Stu Mojica [facility] [address] [place] [phone] 04/28/2022 Elin Box [facility] [address] [place] [address] 10/18/2021 Timo Becerra [facility], [address] [place] [phone] 10/18/2021 Timo Becerra [facility], [address] [place] [phone] 11/02/2021 Timo Becerra Episode of confusion R41.0 [facility] [address] [address] 11/17/2021 Timo Becerra [facility] [address] [place] [phone] 11/17/2021 Timo Becerra [facility], [address] [place] [phone] 11/18/2021 Timo Becerra [facility], [address] [place] [address] 11/23/2021 Timo Becerra [facility], [address] [facility] [address] [place] [address] 12/24/2021 Timo Becerra [facility], [address] [place] [phone] 10/18/2021 Vianey Holder [facility], [address] [place] [phone] 12/24/2021 Vianey Holder [facility], [address] [place] [phone] 10/26/2021 Vianey Holder Seizure R56.9 [facility], [address] [place] [address] 12/07/2021 Timo Becerra Seizure R56.9 [facility], [address] [place] [address] 10/15/2021 Timo Becerra Weakness of left arm R29.898 ; Headache syndrome G44.89 ; Joint hyperextensibility of multiple sites M24.80 ; Dysautonomia G90.1 and Episode of confusion R41.0 [facility], [address] [address] 03/25/2022 Elin Box [facility], [address] [address] 04/29/2022 Elin Box [facility], [address] [address] 12/27/20[facility] [address] [address] 12/10/[address] [facility], [address] [address] 02/22/2022 Timo Becerra Joint hyperextensibi lity of multiple sites M24.80 ; Dysautonomia G90.1 and Chronic migraine G43.709 ASSESSMENTS Encounter Date Diagnosis Assessment Notes Treatment Notes Treatment Clinical Notes 10/15/2021 Weakness of left arm (ICD-10 - R29.898) 10/15/2021 Headache syndrome (ICD-10 - G44.89) 10/26/2021 Seizure (ICD-10 - R56.9) 11/02/2021 Episode of confusion (ICD-10 - R41.0) 12/07/2021 Seizure (ICD-10 - R56.9) 02/22/2022 Joint hyperextensibi lity of multiple sites (ICD-10 - M24.80) 02/22/2022 Dysautonomia (ICD-10 - G90.1) 10/15/2021 Joint hyperextensibi lity of multiple sites (ICD-10 - M24.80) 02/22/2022 Chronic migraine (IC D-10 - G43.709) 10/15/2021 Dysautonomia (ICD-10 - G90.1) 10/15/2021 Episode of confusion (ICD-10 - R41.0) PLAN OF TREATMENT Next Appt Details Provider Name:Elin rock, 11/15/2022 11:30:00 AM, [address] [facility], [address], [place], [address], Provider Name:Timo Becerra, 03/29/2023 11:30:00 AM, [address] [facility], [facility] [[email or web address] [address], [place], [address], Insurance Providers Payer Name Payer Address Payer Phone Subscriber Number Group Number Insured Name Patient Relationship to Insured Coverage Start Date Coverage End Date MEDICAID [employer] [address] [place] [id number] Chiquita Bee Self - patient is the insured MEDICAL (GENERAL) HISTORY Medical History History ICD Code asthma joint hypermobility Headache syndrome Joint hyperextensibility of multiple sit es Dysautonomia Surgical History Surgery Date(Month/Year) oral 01/22/2021 Botox bladder/ neck Teathered cord release surgery 07/02
[2022-10-15 13:41] LABS: Alanine Aminotransferase 5 U/L (0-31); Albumin Level 3.3 g/dL (3.5-5.0); Alkaline Phosphatase 70 U/L (39-117); Aspartate Amino Transferase 16 U/L (5-31); Bilirubin Direct 0.1 mg/dL (0.0-0.5); Bilirubin Total 0.3 mg/dL (0.0-1.0); HCG Quantitative < 2 mIU/mL; Magnesium 2.1 mg/dL (1.6-2.6)
[2022-10-15 13:58] LABS: Troponin-I High Sensitivity < 2.7 ng/L (<3.5-17.0)
[2022-10-15 18:08] LABS: Appearance Urine Clear; Color Urine Yellow; Glucose Urine UA Negative (Negative); Leukocyte Esterase Urine Negative (Negative); Nitrite Urine Negative (Negative); Urine Blood Negative (Negative); Urine Ketones Trace mg/dL (Negative); Urine Protein Negative (Neg-Trace)
--- NOTE | 2022-10-15 18:15 | PHA.MEDREC ---
Pharmacy Consult ? Medication Reconciliation Pharmacy has completed the medication reconciliation. spoke with patient who had a general list of medications. Confirmed others that were not on the list. She was on slow release iron and was recently switched to regular 325mg iron but patient has not started the new prescription. She also has not started the vyvanse 10mg dailyDesc. Does use lidocaine patches as needed but has temporarily stopped using them as they have not helped. Does have lorazepam at home but only uses as needed. Patient described her pump releasing a total of 160mcg of baclofen that is spread out during the day.
--- NOTE | 2022-10-15 20:48 | PC.NURSE ---
I assumed care of the pt at 1900. Pt is resting in bed at this time, A&Ox4, GCS 15, with warm, dry skin. Pt has been asking for her night time medications, which are ordered but pending pharmacy verification. Pt did not state other complaints, and continues to rest in bed, speaking on the phone.
[2022-10-15] MEDS: Carbidopa/Levodopa 25/100 TABLET 0.5 TAB PO (21:41)
[2022-10-15] MEDS: Cholecalciferol (Vitamin D3) 25 MCG TABLET 125 MCG PO (21:42)
[2022-10-15] MEDS: Pregabalin 150 MG CAPSULE PO (21:42)
[2022-10-15] MEDS: pyRIDostigmine bromide 60 MG TABLET PO (21:43)
[2022-10-15] MEDS: Ascorbic Acid 500 MG TABLET PO (21:43)
[2022-10-15] MEDS: Baclofen 20 MG TABLET PO (21:43)
[2022-10-15] MEDS: Omeprazole 20 MG CAPSULE.DR PO (21:44)
[2022-10-15] MEDS: Famotidine 20 MG TABLET 40 MG PO (21:44)
[2022-10-15] MEDS: Tamsulosin HCL 0.4 MG CAPSULE 0.8 MG PO (21:44)
[2022-10-15] MEDS: Apixaban 5 MG TABLET PO (21:44)
[2022-10-15] MEDS: Montelukast Sodium 10 MG TABLET PO (21:44)
[2022-10-15] MEDS: hydrOXYzine HCL 25 MG TABLET PO (21:55)
[2022-10-15] MEDS: diazePAM 2 MG TABLET PO (21:55)
[2022-10-15] MEDS: oxyCODONE HCl Immed Release 15 MG TABLET PO (22:41)
[2022-10-16] VITALS (7 sets, daily range): BP systolic 96–114; BP diastolic 55–72; PULSE 68–99; RESP 15–19; TEMP 36.8; O2SAT 93–98
[2022-10-16] MEDS: diazePAM 2 MG TABLET PO ×4 (03:09→23:50)
[2022-10-16] MEDS: oxyCODONE HCl Immed Release 15 MG TABLET PO ×4 (03:52→21:54)
[2022-10-16] MEDS: Omeprazole 20 MG CAPSULE.DR PO (07:05)
[2022-10-16] MEDS: pyRIDostigmine bromide 60 MG TABLET 90 MG PO ×2 (07:06→20:50)
[2022-10-16] MEDS: Carbidopa/Levodopa 25/100 TABLET 0.5 TAB PO ×3 (08:22→20:54)
[2022-10-16] MEDS: Baclofen 20 MG TABLET PO ×3 (08:22→20:53)
[2022-10-16] MEDS: Ondansetron ODT 4 MG TAB.RAPDIS TRANSLINGU ×2 (08:23→23:50)
[2022-10-16] MEDS: Pregabalin 150 MG CAPSULE PO ×3 (08:23→20:50)
[2022-10-16] MEDS: Tamsulosin HCL 0.4 MG CAPSULE 0.8 MG PO (08:24)
[2022-10-16] MEDS: Apixaban 5 MG TABLET PO ×2 (08:24→20:49)
[2022-10-16] MEDS: Loratadine 10 MG TABLET PO (08:25)
[2022-10-16] MEDS: Cholecalciferol (Vitamin D3) 25 MCG TABLET 125 MCG PO (08:25)
[2022-10-16] MEDS: Ascorbic Acid 500 MG TABLET PO ×2 (08:26→20:53)
[2022-10-16] MEDS: Famotidine 20 MG TABLET 40 MG PO ×2 (08:26→20:49)
[2022-10-16] MEDS: Fluticasone/Vilanterol 100/25 BLST.W.DEV 1 PUFF INHALE (09:11)
[2022-10-16] MEDS: Azelastine HCl Nasal 137 MCG/Spray 30 ML 1 SPRAY NOSTRIL-B ×2 (09:13→20:56)
--- NOTE | 2022-10-16 10:25 | MHC.CM.ED ---
Received consult for assessment of d/c needs: Met with pt to discuss d/c needs: pt w/complex medical hx and needs: has been to several hospitals recently including [facility]. Pt states she came to [facility] from [place] with unresolved weakness and diffuse body pain worse with movement. Pt resides alone and has 40 hours/weekly of [employer] services. She also states friends stay with her to supplement care needs as she is unable to get up and down her stairs (resides on 2nd floor) Pt has a power w/c, walker and commode. She has a community case operator from [facility] who follows pt weekly. HCP is on file at [facility]. Pt states she is weak and unable to return to home at this time. She is requesting STR and is receptive to a broad referral search. Pt understands PT eval will occur 10/17 and barriers to placement include her age and limited payor contract sites. ED CM to follow for finalization of d/c
[2022-10-16] MEDS: TiZANidine HCL 4 MG TABLET 3 MG PO ×2 (11:23→20:51)
[2022-10-16] MEDS: pyRIDostigmine bromide 60 MG TABLET PO (13:12)
[2022-10-16] MEDS: Montelukast Sodium 10 MG TABLET PO (20:53)
--- NOTE | 2022-10-16 21:05 | PC.NURSE ---
Pt took out 0.25mg tab of tizanidine an refused to take reporting they didn't like how it made them feel. Pt only took 2mg worth of medication.
--- NOTE | 2022-10-16 21:37 | PC.NURSE ---
Discussed pt wanting to lower dose from 3mg down to 2mg with . changed dose to 2mg TID
[2022-10-16] MEDS: hydrOXYzine HCL 25 MG TABLET PO (21:54)
--- NOTE | 2022-10-16 21:57 | MHC.EDTECH ---
pt independent to commode. t/w changed commode liner.
[2022-10-17] VITALS (7 sets, daily range): BP systolic 102–117; BP diastolic 62–71; PULSE 63–118; RESP 14–18; TEMP 36.4–36.7; O2SAT 80–96
[2022-10-17] MEDS: Docusate Sodium 100 MG CAPSULE PO ×2 (03:02→21:21)
[2022-10-17] MEDS: Baclofen 20 MG TABLET PO ×4 (03:02→18:19)
[2022-10-17] MEDS: oxyCODONE HCl Immed Release 15 MG TABLET PO ×2 (03:02→09:53)
[2022-10-17] MEDS: pyRIDostigmine bromide 60 MG TABLET PO ×2 (03:02→13:59)
[2022-10-17] MEDS: Pregabalin 150 MG CAPSULE PO ×4 (03:43→18:14)
[2022-10-17] MEDS: diazePAM 2 MG TABLET PO ×5 (03:44→22:20)
[2022-10-17] MEDS: Omeprazole 20 MG CAPSULE.DR PO (06:53)
[2022-10-17] MEDS: Carbidopa/Levodopa 25/100 TABLET 0.5 TAB PO ×3 (07:41→18:10)
[2022-10-17] MEDS: Apixaban 5 MG TABLET PO ×2 (07:45→18:10)
[2022-10-17] MEDS: Famotidine 20 MG TABLET 40 MG PO ×2 (07:45→18:11)
--- NOTE | 2022-10-17 07:57 | PC.NURSE ---
current order for valium per mar was stating q6xd. pt reports she is taking it q4h as a prn d/t a new change by nydia garay. spoke with doris at pharmacy, who will change the order to read q4h PRN for easier administration.
[2022-10-17] MEDS: pyRIDostigmine bromide 60 MG TABLET 90 MG PO ×2 (08:17→18:09)
[2022-10-17] MEDS: Tamsulosin HCL 0.4 MG CAPSULE 0.8 MG PO (08:19)
[2022-10-17] MEDS: Ascorbic Acid 500 MG TABLET PO ×2 (08:19→21:16)
[2022-10-17] MEDS: Loratadine 10 MG TABLET PO (08:19)
[2022-10-17] MEDS: Cholecalciferol (Vitamin D3) 25 MCG TABLET 125 MCG PO (08:19)
[2022-10-17] MEDS: Azelastine HCl Nasal 137 MCG/Spray 30 ML 1 SPRAY NOSTRIL-B ×2 (08:24→21:22)
[2022-10-17] MEDS: Fluticasone/Vilanterol 100/25 BLST.W.DEV 1 PUFF INHALE (08:25)
--- NOTE | 2022-10-17 08:48 | PC.NURSE ---
physical therapist at bed side for evaluation, physical therapist stated that when the pt stood up and tool only few steps her oxygen dropped 80-82% an hr rate at 118 pt did report feeling sob
--- NOTE | 2022-10-17 12:20 | PC.NURSE ---
assumed care of pt at 1200, pt repositioned into hospital bed, vss, maintaining O2 on RA at rest, pt requesting to speak w provider/case management rn regarding plan of care due to decreased O2 w associated lightheadedness/dizziness w exertion. pt pt note, plan for rehab when medically stable due to O2 in 80s with exertion. provider notified.
--- NOTE | 2022-10-17 12:59 | PC.NURSE ---
pharmacy contacted for 1300 medications not loaded in overflow Pyxis.
[2022-10-17] MEDS: TiZANidine HCL 4 MG TABLET 2 MG PO ×2 (14:16→21:16)
--- NOTE | 2022-10-17 14:19 | PC.NURSE ---
pt medicated per MAR with outstanding medications and PRN valium, pt requested that she only take 1mg of tizanidine due to not liking the way the medication makes her feel.
--- NOTE | 2022-10-17 14:49 | MHC.CM.ED ---
Addendum entered by Brynn Barlow 10/17/22 16:08: Received telephone call from FLAKO Lorenz for home management of patient. Gerda confirms patient had Balcofen pump inserted in August and went to [facility] acute [facility] after that. Patient did well the 1st week and then experienced more pain and urinary retention. Patient ended up going to the hospital twice while at acute rehab. [facility] declined to accept her back at that time. SNF was [facility] at the time of discharge at [facility]. Patient declined at that time. Referral broadcasted to all acute rehabs in [facility] at Gerda's request. Original Note: Patient remains in ER overflow. Physical therapy eval completed. PT rec rehab once medically stable. Patient's O2 dropped to the 80's while patient was participating in PT eval. Nora POWELL aware and contacted the hospitalist to admit patient. Hospitalist felt O2 sat drop was related to PE's. Referral to custodial facility was previously sent within 25 miles. No bed offers were available at that time. Referral broadcasted within 50 miles. At this time, [facility]. Met with patient to discharge planning. 2 SNF options discussed with patient. Patient became upset and stated I need to go to acute rehab. T/W explained patient's insurance will likely not authorize acute rehab. Patient feels very strongly that she should be admitted to the hospital or go to acute rehab. [facility] b[facility]of[facility] pump was inserted on 09/06/2022. Patient stated the deng there lied and said I was on anticoagulation when I wasn't and that's how I got blood clots. T/W explained Nora POWELL spoke with the hospitalist to look into patient getting admitted. Also explained hospitalist felt low O2 sat was related to PE's. Patient feels this is not true because that's not what [facility] said. Patient also stated I've been asking to see a doctor for 48 hours and everyone ignored me. T/W offered to speak to Nora POWELL to have her see patient. Patient then stated I want to speak to the hospitalist to explain why I need to be admitted. At this time, T/W offered to ask Nora POWELL to see patient and to make referrals to the 3 local acute rehabs. Patient stated You lied. You said my insurance denied the acute rehabs. T/W explained it was stated that insurance would like not authorize acute rehab. Patient started escalating and stated I'm 31 years old. Maybe you should be nicer to me. At this time, T/W ended the conversation and walked out of the room. Referrals made to all 3 acute local rehabs. Continue to monitor for d/c needs.
[2022-10-17 15:51] LABS: B Type Natriuretic Peptide 24 pg/mL (<100)
[2022-10-17] MEDS: oxyCODONE HCl Immed Release 5 MG TABLET 15 MG PO ×2 (16:42→22:20)
--- NOTE | 2022-10-17 16:44 | PC.NURSE ---
medicated per MAR for 8/10 pain.
[2022-10-17] MEDS: Montelukast Sodium 10 MG TABLET PO (21:16)
--- NOTE | 2022-10-17 22:43 | PC.NURSE ---
patient reports 7/10 pain in legs, sacrum, hands. medicated per may.
[2022-10-18] MEDS: Baclofen 20 MG TABLET PO ×4 (01:28→19:08)
[2022-10-18] MEDS: pyRIDostigmine bromide 60 MG TABLET PO ×2 (01:28→14:03)
[2022-10-18] MEDS: Pregabalin 150 MG CAPSULE PO ×4 (01:56→18:28)
[2022-10-18] MEDS: diazePAM 2 MG TABLET PO ×4 (02:24→21:13)
[2022-10-18] MEDS: oxyCODONE HCl Immed Release 5 MG TABLET 15 MG PO ×4 (05:00→22:46)
[2022-10-18] MEDS: Omeprazole 20 MG CAPSULE.DR PO (05:01)
[2022-10-18 06:00] VITALS: BP 114/79; PULSE 59; RESP 18; TEMP 36.3; O2SAT 97
[2022-10-18] MEDS: Famotidine 20 MG TABLET 40 MG PO ×2 (06:22→18:29)
[2022-10-18] MEDS: Carbidopa/Levodopa 25/100 TABLET 0.5 TAB PO ×3 (06:22→18:28)
[2022-10-18] MEDS: Apixaban 5 MG TABLET PO ×2 (06:22→18:28)
[2022-10-18] MEDS: pyRIDostigmine bromide 60 MG TABLET 90 MG PO ×2 (07:20→19:28)
[2022-10-18] MEDS: Loratadine 10 MG TABLET PO (07:57)
[2022-10-18] MEDS: Tamsulosin HCL 0.4 MG CAPSULE 0.8 MG PO (07:57)
[2022-10-18] MEDS: TiZANidine HCL 4 MG TABLET 2 MG PO ×3 (07:58→20:11)
[2022-10-18] MEDS: Ascorbic Acid 500 MG TABLET PO ×2 (08:00→20:11)
[2022-10-18] MEDS: Cholecalciferol (Vitamin D3) 25 MCG TABLET 125 MCG PO (08:01)
[2022-10-18] MEDS: Fluticasone/Vilanterol 100/25 BLST.W.DEV 1 PUFF INHALE ×2 (08:05→12:23)
[2022-10-18] MEDS: Azelastine HCl Nasal 137 MCG/Spray 30 ML 1 SPRAY NOSTRIL-B ×2 (08:06→20:13)
[2022-10-18] MEDS: Ondansetron ODT 4 MG TAB.RAPDIS TRANSLINGU (08:08)
[2022-10-18] MEDS: Docusate Sodium 100 MG CAPSULE PO (09:46)
[2022-10-18 11:54] VITALS: BP 97/73; PULSE 65; RESP 17; TEMP 36.6; O2SAT 95
--- NOTE | 2022-10-18 11:57 | PC.NURSE ---
assumed care of pt at 0700. pt a&o x4, pleasant, calm, and cooperative. resting quietly in hospital bed. pt makes needs met.
--- NOTE | 2022-10-18 12:01 | PC.NURSE ---
assumed care of pt at 0700. pt a&o x4, pleasant, calm, and cooperative. reporting 7/10 all over body pain. medicated per may. awaiting placement at rehab facility. makes needs known. resting comfortably in hospital bed. rr even/unlabored. call rodrigues within reach. all pt needs met at this time.
--- NOTE | 2022-10-18 12:45 | MHC.CM.ED ---
Addendum entered by Brynn Barlow 10/18/22 14:17: This information was provided to patient at bedside. Original Note: Patient remains in ER overflow. Received telephone from patient's nurse outreach case manager, Minna. Minna can be reached via telehone at [phone]. Minna states patient has a history of a head injury and is autistic. Minna states patient is having pain that isn't controlled which is making it difficult to get her needs met. Referral has been broadcasted to all acute rehab facilities in the [facility]. [facility] from [facility], [facility], [facility]. [facility]. Continue to monitor for d/c needs.
[2022-10-18] MEDS: LORazepam 0.5 MG TABLET PO (13:13)
[2022-10-18] MEDS: hydrOXYzine HCL 25 MG TABLET PO (14:06)
[2022-10-18 15:53] VITALS: BP 116/76; PULSE 73; RESP 18; TEMP 36.4; O2SAT 95
[2022-10-18 18:00] VITALS: BP 104/62; PULSE 72; RESP 18; TEMP 36.8; O2SAT 99
--- NOTE | 2022-10-18 18:34 | PC.NURSE ---
pt resting comfortably in bed with visitor at bedside. medicated per may. consumed 50% of dinner. rr even/unlabored. call rodrigues within reach. medications called from pharmacy
[2022-10-18] MEDS: Montelukast Sodium 10 MG TABLET PO (20:12)
--- NOTE | 2022-10-18 21:53 | PC.NURSE ---
Patient alert and oriented, reports feeling tired, reports pain/muscle spasms, medicated per mar. Independent to bedside commode. vss. snack provided, callbell within reach.
[2022-10-19] VITALS (8 sets, daily range): BP systolic 100–135; BP diastolic 63–73; PULSE 56–101; RESP 15–19; TEMP 36.2–36.8; O2SAT 95–98
[2022-10-19] MEDS: pyRIDostigmine bromide 60 MG TABLET PO ×2 (01:47→13:39)
[2022-10-19] MEDS: diazePAM 2 MG TABLET PO ×5 (01:50→22:52)
[2022-10-19] MEDS: Baclofen 20 MG TABLET PO ×4 (02:00→19:04)
[2022-10-19] MEDS: oxyCODONE HCl Immed Release 5 MG TABLET 15 MG PO ×3 (04:22→16:18)
[2022-10-19] MEDS: Docusate Sodium 100 MG CAPSULE PO (04:22)
[2022-10-19] MEDS: Omeprazole 20 MG CAPSULE.DR PO (06:04)
[2022-10-19] MEDS: Apixaban 5 MG TABLET PO ×2 (07:36→19:03)
[2022-10-19] MEDS: Carbidopa/Levodopa 25/100 TABLET 0.5 TAB PO ×3 (07:36→19:02)
[2022-10-19] MEDS: Famotidine 20 MG TABLET 40 MG PO ×2 (07:36→19:02)
[2022-10-19] MEDS: Pregabalin 150 MG CAPSULE PO ×3 (07:40→19:04)
--- NOTE | 2022-10-19 07:48 | PC.NURSE ---
Resumed care of patient this morning, once I walked on unit she was requesting medications. 0700/prn brought, pt room cleaned up, pharmacy called and asked to bring medications not loaded in medroom at this time, all needs met.
[2022-10-19] MEDS: Azelastine HCl Nasal 137 MCG/Spray 30 ML 1 SPRAY NOSTRIL-B ×2 (08:44→21:11)
[2022-10-19] MEDS: TiZANidine HCL 4 MG TABLET 2 MG PO ×3 (08:45→21:10)
[2022-10-19] MEDS: hydrOXYzine HCL 25 MG TABLET PO (08:45)
[2022-10-19] MEDS: Cholecalciferol (Vitamin D3) 25 MCG TABLET 125 MCG PO (08:45)
[2022-10-19] MEDS: Tamsulosin HCL 0.4 MG CAPSULE 0.8 MG PO (08:46)
[2022-10-19] MEDS: Loratadine 10 MG TABLET PO (08:46)
[2022-10-19] MEDS: Ascorbic Acid 500 MG TABLET PO ×2 (08:46→21:10)
[2022-10-19] MEDS: pyRIDostigmine bromide 60 MG TABLET 90 MG PO ×2 (08:47→19:02)
[2022-10-19] MEDS: Fluticasone/Vilanterol 100/25 BLST.W.DEV 1 PUFF INHALE (08:48)
--- NOTE | 2022-10-19 11:44 | MHC.CM.ED ---
Addendum entered by Brynn Barlow 10/19/22 13:33: Received notification from [facility] that they will not be able to offer a bed becuase it appears patient is self limiting with therapy participation. Still waiting to hear from [facility] and [facility]. On 10/18, patient was agreeable to referral being broadcasted to all SNF's throughout the [facility]. [facility] and [facility] are able to offer beds. Patient does not want to accept either of these beds. 325 SNF referrals made at this time. Addendum entered by Brynn Barlow 10/19/22 13:11: [facility] d/c summary obtained and placed with chart. Original Note: Patient remains in ER overflow. Patient has asked that [facility] obtain records from [facility], [facility] and [facility]. T/W requested these records on 10/18. [facility] d/c summary obtained today and placed in patient's chart. Have not heard from [facility] or [facility] yet. Chandra is requesting additional physical therapy note indicating patient can tolerate 3 hours of theapy a day. [facility] will re-see patient today. [facility] and [facility] are still reviewing. Received telephone call from Gerda RN at [facility] that assists [facility] patient's in the community. Greda has received multiple text messages from patient about plan of care, d/c plans, etc. Gerda has tried to explain to patient that [facility] is doing everything they can to find an appropriate discharge plan and to reiterate that admission to the hospital is not appropriate. Continue to monitor for d/c needs.
[2022-10-19] MEDS: SUMAtriptan succinate 50 MG TABLET PO (15:02)
[2022-10-19] MEDS: Ondansetron ODT 4 MG TAB.RAPDIS TRANSLINGU (15:03)
--- NOTE | 2022-10-19 16:26 | PC.NURSE ---
Pt lost temporary tooth d/t not being able to make her follow up from being in the hospital, tooth currently at bedside, pt advised to not eat or drink on that side for the time being.
--- NOTE | 2022-10-19 18:33 | MHC.EDTECH ---
changed commode liner. provided with 2 cheese sticks.
[2022-10-19] MEDS: Montelukast Sodium 10 MG TABLET PO (21:10)
[2022-10-20] MEDS: pyRIDostigmine bromide 60 MG TABLET PO ×2 (01:26→12:49)
[2022-10-20] MEDS: Baclofen 20 MG TABLET PO ×4 (01:27→18:16)
[2022-10-20] MEDS: Pregabalin 150 MG CAPSULE PO ×4 (01:27→20:11)
[2022-10-20] MEDS: Morphine Sulfate Immed Release 15 MG TABLET PO ×4 (01:27→20:07)
[2022-10-20 05:05] VITALS: BP 102/67; PULSE 73; RESP 18; TEMP 36.1; O2SAT 99
[2022-10-20] MEDS: Omeprazole 20 MG CAPSULE.DR PO (05:11)
[2022-10-20] MEDS: diazePAM 2 MG TABLET PO ×4 (05:11→20:07)
--- NOTE | 2022-10-20 06:18 | PC.NURSE ---
Assumed care of pt at 1900, 10/19. Pt continues in ED overflow, awaiting placement. A&Ox4. Pt requested scheduled pain medication on initial interaction with tag writer as well as requesting their 15mg oxycodone be switched to morphine, because that works better for me. Or It did after my tether cord surgery in June of last year . Pt reports pain as spasms in their legs. Covering MD notified of pt request and med orders adjusted. Pt medicated as ordered and appropriate with +effect. Pt appropriately arousable to voice, observed resting in bed sleeping the majority of shift as noted on frequent purposeful rounding. Exceptions in sleep appeared to be when pt woke on nursing staff entering the room and for alarms periodically heard from pt's phone. Pt denies chest pain, sob, h/a, and n/v. +pp/cms. Continuous o2 monitoring with spo2 maintained 93% and above. Breathing is even and unlabored without distress. Pt denies further complaints or concerns.
[2022-10-20] MEDS: Famotidine 20 MG TABLET 40 MG PO ×2 (07:59→20:08)
[2022-10-20] MEDS: Apixaban 5 MG TABLET PO ×2 (08:00→11:17)
[2022-10-20] MEDS: hydrOXYzine HCL 25 MG TABLET PO (08:00)
[2022-10-20] MEDS: Carbidopa/Levodopa 25/100 TABLET 0.5 TAB PO ×3 (08:01→18:15)
[2022-10-20] MEDS: Fluticasone/Vilanterol 100/25 BLST.W.DEV 1 PUFF INHALE (08:01)
[2022-10-20] MEDS: pyRIDostigmine bromide 60 MG TABLET 90 MG PO ×2 (08:02→20:08)
[2022-10-20] MEDS: Azelastine HCl Nasal 137 MCG/Spray 30 ML 1 SPRAY NOSTRIL-B (08:54)
[2022-10-20] MEDS: Tamsulosin HCL 0.4 MG CAPSULE 0.8 MG PO (08:55)
[2022-10-20] MEDS: TiZANidine HCL 4 MG TABLET 2 MG PO ×2 (08:55→15:25)
[2022-10-20] MEDS: Ascorbic Acid 500 MG TABLET PO (08:55)
[2022-10-20] MEDS: Loratadine 10 MG TABLET PO (08:55)
[2022-10-20] MEDS: Cholecalciferol (Vitamin D3) 25 MCG TABLET 125 MCG PO (10:27)
--- NOTE | 2022-10-20 11:45 | PC.NURSE ---
Med requested dantrolene from pharm
[2022-10-20 12:00] VITALS: BP 105/69; PULSE 71; RESP 16; TEMP 36.6; O2SAT 94
[2022-10-20 12:18] LABS: MANUAL DIFF FLAG NO
[2022-10-20 12:29] LABS: INTERNATIONAL NORM RATIO 1.2 (0.9-1.1)
[2022-10-20 12:31] LABS: Basophils Percent Auto 0.6 % (0-2); Eosinophils Absolute Auto 0.2 X10*3/uL (0.0-0.4); Eosinophils Percent Auto 3.2 % (0-4); Hematocrit 38.8 % (37.0-47.0); Imm Gran Abs Auto 0.02 X10*3/uL (0.00-0.03); Imm Gran Pct Auto 0.4 % (0.0-0.4); Lymphocytes Absolute Auto 2.4 X10*3/uL (1.2-4.9); Mean Corpuscular HGB Conc 33.5 g/dl (31.0-35.0); Mean Corpuscular Hemoglobin 30.4 pg (27.0-33.0); Mean Corpuscular Volume 90.9 fL (80.0-98.0); Mean Platelet Volume 10.4 fL (9.4-12.3); Monocytes Absolute Auto 0.3 X10*3/uL (0.1-1.2); Monocytes Percent Auto 6.1 % (2-11); Neutrophils Absolute Auto 2.2 x10*3/uL (2.0-8.3); Neutrophils Percent Auto 42.7 % (45-73); Platelet Count 202 X10*3/uL (160-400); Red Blood Count 4.27 X10*6/uL (4.20-5.50); Red Cell Distribution Width 11.9 % (11.0-16.0); White Blood Count 5.1 X10*3/uL (4.8-10.8)
[2022-10-20 12:43] LABS: Alanine Aminotransferase 6 U/L (0-31); Albumin Level 3.6 g/dL (3.5-5.0); Alkaline Phosphatase 68 U/L (39-117); Anion Gap 10 (12-20); Aspartate Amino Transferase 15 U/L (5-31); Bilirubin Total 0.2 mg/dL (0.0-1.0); Blood Urea Nitrogen 13 mg/dL (9-16); Calcium 9.2 mg/dL (8.4-10.2); Carbon Dioxide 25 mmol/L (22-29); Chloride 110 mmol/L (96-108); Estimated Glomerular Filt Rate > 60; Glucose Random 109 mg/dL (60-115); Magnesium 1.9 mg/dL (1.6-2.6); Potassium 4.3 mmol/L (3.3-5.1); Sodium 141 mmol/L (135-145); Total Protein 6.6 g/dL (6.5-8.0)
[2022-10-20 12:58] LABS: Troponin-I High Sensitivity < 2.7 ng/L (<3.5-17.0)
[2022-10-20 13:01] LABS: Partial Thromboplastin Time 38.2 SEC (26.0-36.4)
--- NOTE | 2022-10-20 13:31 | PC.NURSE ---
Second med request for dantrolene from pharm
[2022-10-20] MEDS: Ondansetron ODT 4 MG TAB.RAPDIS TRANSLINGU (13:42)
[2022-10-20] MEDS: Docusate Sodium 100 MG CAPSULE PO (13:42)
[2022-10-20 15:18] LABS: Appearance Urine Clear; Color Urine Yellow; Glucose Urine UA Negative (Negative); Leukocyte Esterase Urine Negative (Negative); Nitrite Urine Negative (Negative); PH 5.5 (5.0-9.0); Specific Gravity - Urine 1.015 (1.005-1.025); Urine Blood Negative (Negative); Urine Ketones Negative (Negative); Urine Protein Negative (Neg-Trace)
--- NOTE | 2022-10-20 15:40 | PC.NURSE ---
Addendum entered by Joy Ge RN 10/20/22 17:02: SHERRY Perez cme and spoke with patient Original Note: patient requesting to be send home with Oxygen ,SHERRY Perez notified,process of evaluation for home oxygen was explained to patient,patient requested to speak with SHERRY Perez,notified Ana via tiger
[2022-10-20 17:41] VITALS: BP 117/78; PULSE 70; RESP 16; TEMP 36.3; O2SAT 98
--- NOTE | 2022-10-20 17:54 | PC.NURSE ---
Report given to ED RN,will transfer patient to ED shortly
--- NOTE | 2022-10-20 19:06 | PC.NURSE ---
Family member Barbara called to express her concern about pt getting moved to a hallway bed in the ED, propellant charge loader notified, RN taking over pt aware - will c/b w update [phone]
--- NOTE | 2022-10-20 21:11 | PC.NURSE ---
Assumed care of pt at 1850. Pt requested to leave AMA upon nurse introducing self. State she was placed in a chung bed and wanted to leave. Education regarding risk of leaving AMA discussed with PT. PT signed AMA paperwork. Discharge with friend
--- NOTE | 2022-10-21 07:38 | MHC.CM.ED ---
Received notification that patient left AMA last night.
== END 2022-10-20 21:13 | disposition left against medical advice (07) ==
PROVIDERS: Nurse Practitioner Family; Physician Assistant Medical; Registered Nurse Emergency; Emergency Provider Emergency Medicine; PCP Family Medicine
DX: I82.411 Acute embolism and thrombosis of right femoral vein (principal); I82.451 Acute embolism and thrombosis of right peroneal vein; I82.431 Acute embolism and thrombosis of right popliteal vein; I26.99 Other pulmonary embolism without acute cor pulmonale; R53.1 Weakness; M79.662 Pain in left lower leg; M79.661 Pain in right lower leg; R51.9 Headache, unspecified; R25.2 Cramp and spasm; Q89.8 Other specified congenital malformations; D47.09 Other mast cell neoplasms of uncertain behavior; M35.9 Systemic involvement of connective tissue, unspecified; Z20.822 Contact with and (suspected) exposure to COVID-19; Z79.01 Long term (current) use of anticoagulants; Z79.891 Long term (current) use of opiate analgesic; Z79.899 Other long term (current) drug therapy
CPT/HCPCS: 36415; 70450; 71046; 71275; 80053; 80076; 81003; 82550; 83735; 83880; 84484; 84702; 85025; 85610; 85730; 87635; 93005; 93970; 96360; 96361; 97162; 97166; 97530; 99285

== ENCOUNTER → 2022-10-15 12:12 | Outpatient (BNV) | payer OTHER, SELFPAY | PROVIDERS: Emergency Provider Emergency Medicine; PCP Family Medicine; Visit Provider Internal Medicine | DX: R07.9 Chest pain, unspecified (principal) | CPT/HCPCS: 93010 ==

== ENCOUNTER 2023-12-04 14:26 | Emergency (ER) | payer OTHER, SELFPAY ==
--- NOTE | ~2023-12-04 | US_ITS ---
EXAMINATION: US TRIPLEX LOWER EXTREMITY, RIGHT CLINICAL INFORMATION: History of DVT COMPARISON: 10/15/2022 TECHNIQUE: Color-flow triplex imaging with spectral analysis and compression Doppler were performed on the right lower extremity. FINDINGS: Respiratory variation, normal compression and augmented flow are noted throughout the right lower extremity. The visualized common femoral vein, superficial femoral vein, profunda femoral vein, popliteal vein and midcalf peroneal and posterior tibial venous segments show no evidence of deep venous thrombosis. There is no Martel's cyst. US/US venous duplex LE RT IMPRESSION: No evidence of deep venous thrombosis involving the right lower extremity. Electronically signed by: Carmen Beonit MD 12/04/2023 07:16 PM EDT
--- NOTE | ~2023-12-04 | XR_ITS ---
EXAMINATION: XR CHEST CLINICAL INFORMATION: Shortness of breath. COMPARISON: October 15, 2022 TECHNIQUE: 2 views of the chest were obtained. FINDINGS: The lungs are well expanded. No focal consolidation. No pleural effusion. Cardiac silhouette is within normal limits. XR/XR chest 2V IMPRESSION: No acute abnormality. Electronically signed by: Baldev Jules MD 12/04/2023 04:32 PM EDT RP
[2023-12-04 14:42] VITALS: BP 156/101; PULSE 93; RESP 18; TEMP 37.2; O2SAT 97; BMI 41.4
--- NOTE | 2023-12-04 14:43 | ED_ITS ---
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 Patient states that over the last week they have had right lower leg cramping and over the last few days they have had chest pain and shortness of breath. Patient denies any dizziness, lightheadedness, abdominal pain, nausea, vomiting, fever, chills, blurry vision, double vision, loss of vision, back pain, night sweats, pain with urination, increased urinary frequency, increased urinary urgency, blood in their urine or stool, syncope or a near syncopal episode, recent trauma or falls, bowel incontinence, bladder incontinence, or any other complaints at this time. Relieving factors: none Exacerbating factors: none Associated symptoms: chest pain and shortness of breath Treatments prior to arrival: none Related Data Home Medications ?Medication ?Instructions ?Recorded ?Confirmed albuterol sulfate 90 mcg/actuation 2 puff inhalation Q4H PRN 09/01/21 10/15/22 aerosol inhaler Respiratory Distress baclofen 10 mg tablet 20 mg PO 01,07,13,19 09/01/21 10/16/22 cetirizine 10 mg tablet 10 mg PO BID 09/01/21 10/15/22 cevimeline 30 mg capsule 1 cap PO TID@0700,1300,1900 09/01/21 10/16/22 cholecalciferol (vitamin D3) 125 125 mcg PO DAILY 09/01/21 10/15/22 mcg (5,000 unit) tablet cromolyn 100 mg/5 mL oral 10 ml PO QID 09/01/21 10/15/22 concentrate diazepam 2 mg tablet 2 mg PO 6XD PRN Muscle Spasm 09/01/21 10/15/22 famotidine 40 mg tablet 40 mg PO BID@0700,1900 09/01/21 10/16/22 fluticasone 250 mcg-salmeterol 50 1 inh inhalation BID 09/01/21 10/15/22 mcg/dose blistr powdr for inhalation (Advair Diskus) lorazepam 0.5 mg tablet 0.5 mg PO Q6H PRN Anxiety 09/01/21 10/15/22 omeprazole 20 mg capsule,delayed 20 mg PO DAILY 09/01/21 10/15/22 release ondansetron 4 mg disintegrating 4 mg PO Q12H PRN Nausea 09/01/21 10/15/22 tablet pregabalin 150 mg capsule 150 mg PO 0100,0700,1300,1900 09/01/21 10/16/22 pyridostigmine bromide 60 mg tablet 60 mg PO BID@0100,1300 09/01/21 10/16/22 sumatriptan succinate 50 mg tablet 50 mg PO DAILY PRN Migraine 09/01/21 10/15/22 Headache tamsulosin 0.4 mg capsule 0.8 mg PO DAILY 09/01/21 10/15/22 apixaban 5 mg tablet (Eliquis) 5 mg PO BID@0700,1900 10/15/22 10/16/22 ascorbic acid (vitamin C) 500 mg 500 mg PO BID 10/15/22 10/15/22 tablet (Vitamin C) azelastine 137 mcg (0.1 %) nasal 1 spray intranasal BID 10/15/22 10/15/22 spray carbidopa 25 mg-levodopa 100 mg 0.5 tab PO TID@0700,1300,1900 10/15/22 10/16/22 tablet codeine sulfate 30 mg tablet 30 mg PO Q4H PRN pain 10/15/22 10/15/22 cromolyn 5.2 mg/spray (4 %) nasal 1 spray intranasal BID 10/15/22 10/15/22 spray (Nasalcrom) docusate sodium 100 mg capsule 100 mg PO BID PRN Constipation 10/15/22 10/15/22 fexofenadine 180 mg tablet 180 mg PO DAILY 10/15/22 10/15/22 hydroxyzine HCl 25 mg tablet 25 mg PO 0100,0700,1300,1900 10/15/22 10/16/22 magnesium glycinate 100 mg (as 400 mg PO DAILY 10/15/22 10/15/22 glycinate) tablet montelukast 10 mg tablet 10 mg PO DAILY 10/15/22 10/15/22 omega 6-gpc-bic-fish oil 1,000 mg 1 cap PO DAILY 10/15/22 10/15/22 (120 mg-180 mg) capsule (Fish Oil) pyridostigmine bromide 60 mg tablet 90 mg PO BID@0700,1900 10/15/22 10/16/22 quercetin 500 mg capsule 1,600 mg PO DAILY 10/15/22 10/15/22 simethicone 125 mg capsule (Gas 125 mg PO DAILY PRN 10/15/22 10/15/22 Relief Extra Strength) Gastrointestinal Spasms Or Cramping tizanidine 2 mg tablet 3 mg PO Q8H 10/15/22 10/16/22 Allergies Allergy/AdvReac Type Severity Reaction Status Date / Time bupropion [From Wellbutrin] Allergy Unknown Verified 12/04/23 14:44 ciprofloxacin [From Cipro] Allergy Unknown Verified 12/04/23 14:44 escitalopram [From Lexapro] Allergy Unknown Verified 12/04/23 14:44 garlic Allergy Vomiting Verified 12/04/23 14:44 gluten Allergy Vomiting Verified 12/04/23 14:44 lamotrigine [From Lamictal] Allergy Unknown Verified 12/04/23 14:44 onion Allergy Vomiting Verified 12/04/23 14:44 pilocarpine Allergy Unknown Verified 12/04/23 14:44 topiramate [From Topamax] Allergy Unknown Verified 12/04/23 14:44 Review of Systems 2 Constitutional: Constitutional: Reports no additional constitutional complaints, Denies chills, Denies fever(s) and Denies night sweats Eyes: Eyes: Reports no additional eye complaints, Denies blurry vision, Denies change in vision, Denies diplopia, Denies eye discharge, Denies loss of vision and Denies eye pain ENT: Denies dizziness Cardiovascular: Cardiovascular: Reports no additional cardiovascular complaints, Reports chest pain, Denies lightheadedness, Denies Loss of Consciousness and Reports dyspnea Respiratory: Respiratory: Reports no additional respiratory complaints and Reports dyspnea Gastrointestinal: Gastrointestinal: Reports no additional gastrointestinal complaints, Denies abdominal pain, Denies melena, Denies hematochezia, Denies change in bowel habits and Denies change in stool character Genitourinary: Genitourinary: Denies hematuria, Denies urinary frequency, Denies dysuria, Denies urinary incontinence, Denies urinary hesitancy and Denies urinary urgency Musculoskeletal: Musculoskeletal: Reports no additional musculoskeletal complaints, Denies numbness and Denies tingling Comments: right lower extremity cramping Neurologic: Denies dizziness, Denies loss of vision, Denies numbness and Denies tingling Psychiatric: Psychiatric: Reports no additional psychiatric complaints Endocrine: Endocrine: Reports no additional endocrine complaints Hematologic/Lymphatic: Hematologic/Lymphatic: Reports no additional hematologic/lymphatic complaints Allergic/Immunologic: Allergic/Immunologic: Reports no additional allergic/immunologic complaints PMFSH Past Medical History Attestation statement: The following information was validated with the patient. Source: old records reviewed and nursing notes reviewed Surgical History H/O Spinal surgery Social History Social History Household Members: None Household Members Other:: LIVES ALONE Housing: Apartment Do you presently have visiting nurse or other home services: No Alcohol intake: never Comment: bed 1 Patient Tobacco Use Status: Never used Tobacco Substance Use Type: Marijuana Advance Directives: Yes Advance Directives on File: Yes Advance Directives Date on File: 10/19/22 service: Yes Sexual orientation: Decline to Answer Physical Exam ED Vital Signs: BMI result Body Mass Index 41.4 Const General: cooperative, no acute distress, alert and awake Nutritional Appearance: well nourished Orientation/consciousness: patient oriented x3 Limitations: no limitations HENMT Head: Yes normal to inspection and Yes atraumatic Ears: hearing grossly normal bilaterally and external ears normal General nose exam: Normal external nose present, no nasal discharge noted and no epistaxis Face and sinus: Yes normal facial exam, No abrasion and No laceration Mouth: Normal oral and palatal mucosa present, no drooling and no muffled voice Eyes General: appearance normal, both eyes and all related structures Periorbital: periorbital findings normal Eyelids: Yes eyelids normal Conjunctivae: conjunctivae normal Pupils: Equal, round and reactive pupils present EOM: EOMs intact bilaterally Neck Neck: Yes normal visual inspection, Yes full ROM and Yes no lymphadenopathy Chest Chest palpation & inspection: normal inspection of the chest Resp Effort & Inspection: normal respiratory effort and able to speak in complete sentences GI Inspection: Yes normal to inspection Neuro General: patient oriented x3 and moves all extremities Cranial nerves: Yes Equal, round and reactive pupils present Cognition (Neuro): normal cognition Extrem General: Yes normal to inspection, Yes full ROM and Yes capillary refill normal Psych Appearance: grossly normal Mental Status: mental status grossly normal Affect: normal affect Attitude: cooperative Thought process: Normal thought process present Thought content: Normal thought content present Insight: Good insight present (Psych) Course Course Course Narrative: RME performed by Ana Huerta PA-C. Patient is a 32 year old assigned female at presenting to the emergency department with right calf cramping, shortness of breath, and difficulty breathing. Patient states that they have a history of clots but is not on any anti-coagulant medications. Detailed physical exam and review of systems are deferred to the landing signal officer. EKG, labs, imaging, and swabs ordered. Patient placed back in the waiting room pending room availability and results. 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 Patient's limited physical exam performed in triage was unremarkable. Patient's blood work was unremarkable. Patient's EKG was unremarkable. Patient's chest x-ray and right lower leg ultrasound showed no acute process. Patient left the department without completing treatment. Patient left the department before myself or any of the other emergency department clinicians could explain to or review with the patient; physical exam findings, test results, need or lack there of for additional testing, need or lack there of for a procedure to be performed, need or lack there of for hospital admission / transfer, need or lack there of for prescription medication, treatment options, or a treatment plan. Differential Diagnosis Differential Diagnoses: The differential diagnosis associated with the presentation includes Chest pain Shortness of breath STEMI NSTEMI DVT Admission/Observation Consideration of admission/observation: Escalation of care including admission/observation considered Patient would have been admitted to the hospital had her work up had any findings where hospital admission was appropriate and her clinical presentation warranted hospital admission. Lab Data [facility] Lab Attestation statement: I reviewed the patient's lab results. My interpretation of these results are in the MDM Rationale portion of this note. 12/04/23 15:07 12/04/23 15:07 Labs: Lab Results 12/04/23 Range/Units 15:07 WBC 7.7 (4.8-10.8) X10*3/uL RBC 4.39 (4.20-5.50) X10*6/uL Hgb 13.8 (12.0-16.0) g/dl Hct 39.0 (37.0-47.0) % MCV 88.8 (80.0-98.0) fL MCH 31.4 (27.0-33.0) pg MCHC 35.4 H (31.0-35.0) g/dl RDW 11.9 (11.0-16.0) % Plt Count 228 (160-400) X10*3/uL MPV 9.5 (9.4-12.3) fL Immature Gran % (Auto) 0.5 H (0.0-0.4) % Neut % (Auto) 49.3 (45-73) % Lymph % (Auto) 41.4 H (20-40) % [place] % (Auto) 7.0 (2-11) % Eos % (Auto) 1.3 (0-4) % Baso % (Auto) 0.5 (0-2) % Lymph # (Auto) 3.2 (1.2-4.9) X10*3/uL [place] # (Auto) 0.5 (0.1-1.2) X10*3/uL Eos # (Auto) 0.1 (0.0-0.4) X10*3/uL Baso # (Auto) 0.0 (0.0-0.2) X10*3/uL Abs Immat Gran (auto) 0.04 H (0.00-0.03) X10*3/uL Absolute Neuts (auto) 3.8 (2.0-8.3) x10*3/uL Absolute Nucleated RBC 0.000 (0.0-0.012) X10*3/uL Nucleated RBC % (auto) 0.0 (0.0-0.2) /100WBC PT 10.5 L (10.9-12.4) SEC INR 0.9 (0.9-1.1) APTT 27.3 (26.0-36.8) SEC D-Dimer High Sensitivty 161 NG/ML Sodium 142 (135-145) mmol/L Potassium 3.8 (3.3-5.1) mmol/L Chloride 110 H (96-108) mmol/L Carbon Dioxide 28 (22-29) mmol/L Anion Gap 8 L (12-20) BUN 8 L (9-16) mg/dL Creatinine 0.68 (0.5-1.4) mg/dL Estim Creat Clear Calc 120.5 Estimated GFR > 60 Random Glucose 90 (60-115) mg/dL Calcium 8.7 (8.4-10.2) mg/dL Magnesium 2.1 (1.6-2.6) mg/dL Total Bilirubin 0.2 (0.0-1.0) mg/dL AST 14 (5-31) U/L ALT 11 (0-31) U/L Alkaline Phosphatase 60 (39-117) U/L Troponin I High Sens < 2.7 (<3.5-17.0) ng/L Total Protein 6.3 L (6.5-8.0) g/dL Albumin 3.8 (3.5-5.0) g/dL Influenza Type A (PCR) NEGATIVE (Negative) Influenza Type B (PCR) NEGATIVE (Negative) RSV RNA Qual (PCR) NEGATIVE (Negative) SARS-CoV-2 RNA (RT-PCR) NEGATIVE (Negative) Independent Interpretation I performed an independent interpretation of an: EKG, Plain X-Ray and Ultrasound Interpretation: My interpretation is in agreement with the radiologist's impression of these imaging studies. L EXAMINATION: XR CHEST CLINICAL INFORMATION: Shortness of breath. COMPARISON: October 15, 2022 TECHNIQUE: 2 views of the chest were obtained. FINDINGS: The lungs are well expanded. No focal consolidation. No pleural effusion. Cardiac silhouette is within normal limits. XR/XR chest 2V IMPRESSION: No acute abnormality. Electronically signed by: Baldev Jules MD 12/04/2023 04:32 PM EDT Dictated By: Benjamin Jules MD Signed By: Electronically signed by Benjamin Jules MD 12/04/23 1632 EXAMINATION: US TRIPLEX LOWER EXTREMITY, RIGHT CLINICAL INFORMATION: History of DVT COMPARISON: 10/15/2022 TECHNIQUE: Color-flow triplex imaging with spectral analysis and compression. Doppler were performed on the right lower extremity. FINDINGS: Respiratory variation, normal compression and augmented flow are noted throughout the right lower extremity. The visualized common femoral vein, superficial femoral vein, profunda femoral vein, popliteal vein and midcalf peroneal and posterior tibial venous segments show no evidence of deep venous thrombosis. There is no Martel's cyst. US/US venous duplex LE RT IMPRESSION: No evidence of deep venous thrombosis involving the right lower extremity. Electronically signed by: Carmen Benoit MD 12/04/2023 07:16 PM EDT Dictated By: Carmen Benoit MD Signed By: Electronically signed by Carmen Benoit MD 12/04/231915 Vent. Rate: 080 BPM Atrial Rate: 080 BPM P-R Int: 164 ms QRS Dur: 080 ms QT Int: 382 ms P-R-T Axes: 037 006 026 degrees QTc Int: 440 ms Normal sinus rhythm Normal ECG When compared with ECG of 15-OCT-2022 12:15, Nonspecific ST and T wave abnormality is no longer Present Electronically Signed By:PHIL JESUS Dictated By: Phil Zabala DO Signed By: Electronically signed by Phil Zabala DO 12/04/23 5251 Radiology Impression Discussion of test interpretation with radiology: I have reviewed the radiologist's reading. Discharge Plan Discharge Clinical Impression: Leg pain, Chest pain, Shortness of breath Patient Disposition: Left W/O Completing Treatment Prescriptions: No Action diazepam 2 mg Tablet 2 mg PO 6XD PRN (Reason: Muscle Spasm) pregabalin 150 mg Capsule 150 mg PO 0100,0700,1300,1900 Rx Instructions: 0100,0700,1300,1900 famotidine 40 mg Tablet 40 mg PO BID@0700,1900 ondansetron 4 mg Tablet,Disintegrating 4 mg PO Q12H PRN (Reason: Nausea) omeprazole 20 mg Capsule,Delayed Release(Dr/Ec) 20 mg PO DAILY cetirizine 10 mg Tablet 10 mg PO BID baclofen 10 mg Tablet 20 mg PO 01,07,, Rx Instructions: 0700, 1300, 1900, 0100 tamsulosin 0.4 mg Capsule 0.8 mg PO DAILY cevimeline 30 mg Capsule 1 cap PO TID@0700,1300,1900 fluticasone propion-salmeterol [Advair Diskus] 250-50 mcg/dose Blister With Device 1 inh INHALATION BID pyridostigmine bromide 60 mg Tablet 60 mg PO BID@0100,1300 Rx Instructions: at lunch and at bedtime cromolyn 100 mg/5 mL concentrate 10 ml PO QID cholecalciferol (vitamin D3) 125 mcg (5,000 unit) Tablet 125 mcg PO DAILY lorazepam 0.5 mg Tablet 0.5 mg PO Q6H PRN (Reason: Anxiety) sumatriptan succinate 50 mg Tablet 50 mg PO DAILY PRN (Reason: Migraine Headache) Rx Instructions: do not exceed 4 doses per 24 hrs albuterol sulfate 90 mcg/actuation Hfa Aerosol Inhaler 2 puff INHALATION Q4H PRN (Reason: Respiratory Distress) cromolyn [Nasalcrom] 5.2 mg/spray (4 %) [place],Non-Aerosol 1 spray INTRANASAL BID tizanidine 2 mg tablet 3 mg PO Q8H simethicone [Gas Relief Extra Strength] 125 mg capsule 125 mg PO DAILY PRN (Reason: Gastrointestinal Spasms Or Cramping) fexofenadine [Yvonne] 180 mg Tablet 180 mg PO DAILY ascorbic acid (vitamin C) [Vitamin C] 500 mg Tablet 500 mg PO BID pyridostigmine bromide 60 mg tablet 90 mg PO BID@0700,1900 Rx Instructions: in the morning and at dinner docusate sodium 100 mg Capsule 100 mg PO BID PRN (Reason: Constipation) montelukast 10 mg Tablet 10 mg PO DAILY hydroxyzine HCl 25 mg tablet 25 mg PO 0100,0700,1300,1900 Rx Instructions: 0100, 0700, 1300, 1900, codeine sulfate 30 mg tablet 30 mg PO Q4H PRN (Reason: pain) azelastine 137 mcg (0.1 %) aerosol,spray 1 spray intranasal BID carbidopa-levodopa 25-100 mg tablet 0.5 tab PO TID@0700,1300,1900 magnesium glycinate 100 mg Tablet 400 mg PO DAILY omega 3-mqj-wzf-fish oil [Fish Oil] 1,000 mg (120 mg-180 mg) Capsule 1 cap PO DAILY Eliquis 5 mg tablet 5 mg PO BID@0700,1900 quercetin 500 mg Capsule 1,600 mg PO DAILY Discharge Date/Time: 12/04/23 22:03
--- NOTE | 2023-12-04 14:45 | ECG_ITS ---
Test Reason : CHEST PAIN Blood Pressure : / mmHG Vent. Rate : 080 BPM Atrial Rate : 080 BPM P-R Int : 164 ms QRS Dur : 080 ms QT Int : 382 ms P-R-T Axes : 037 006 026 degrees QTc Int : 440 ms Normal sinus rhythm Normal ECG When compared with ECG of 15-OCT-2022 12:15, Nonspecific ST and T wave abnormality is no longer Present Referred By: Ana Huerta Electronically Signed By:PHIL JESUS
[2023-12-04 15:11] LABS: MANUAL DIFF FLAG NO
[2023-12-04 15:13] LABS: Basophils Percent Auto 0.5 % (0-2); Eosinophils Absolute Auto 0.1 X10*3/uL (0.0-0.4); Eosinophils Percent Auto 1.3 % (0-4); Hemoglobin 13.8 g/dl (12.0-16.0); Imm Gran Abs Auto 0.04 X10*3/uL (0.00-0.03); Imm Gran Pct Auto 0.5 % (0.0-0.4); Lymphocytes Absolute Auto 3.2 X10*3/uL (1.2-4.9); Lymphocytes Percent Auto 41.4 % (20-40); Mean Corpuscular HGB Conc 35.4 g/dl (31.0-35.0); Mean Corpuscular Hemoglobin 31.4 pg (27.0-33.0); Mean Corpuscular Volume 88.8 fL (80.0-98.0); Mean Platelet Volume 9.5 fL (9.4-12.3); Monocytes Absolute Auto 0.5 X10*3/uL (0.1-1.2); Neutrophils Absolute Auto 3.8 x10*3/uL (2.0-8.3); Neutrophils Percent Auto 49.3 % (45-73); Platelet Count 228 X10*3/uL (160-400); Red Blood Count 4.39 X10*6/uL (4.20-5.50); Red Cell Distribution Width 11.9 % (11.0-16.0); White Blood Count 7.7 X10*3/uL (4.8-10.8)
[2023-12-04 15:18] LABS: INTERNATIONAL NORM RATIO 0.9 (0.9-1.1); Prothrombin Time 10.5 SEC (10.9-12.4)
[2023-12-04 15:20] LABS: D Dimer High Sensitivity 161 NG/ML
[2023-12-04 15:21] LABS: Partial Thromboplastin Time 27.3 SEC (26.0-36.8)
[2023-12-04 15:33] LABS: Alanine Aminotransferase 11 U/L (0-31); Albumin Level 3.8 g/dL (3.5-5.0); Alkaline Phosphatase 60 U/L (39-117); Anion Gap 8 (12-20); Aspartate Amino Transferase 14 U/L (5-31); Bilirubin Total 0.2 mg/dL (0.0-1.0); Blood Urea Nitrogen 8 mg/dL (9-16); Calcium 8.7 mg/dL (8.4-10.2); Carbon Dioxide 28 mmol/L (22-29); Chloride 110 mmol/L (96-108); Creatinine Clr Calc Pharmacy 120.5; Estimated Glomerular Filt Rate > 60; Glucose Random 90 mg/dL (60-115); Magnesium 2.1 mg/dL (1.6-2.6); Potassium 3.8 mmol/L (3.3-5.1); Sodium 142 mmol/L (135-145); Total Protein 6.3 g/dL (6.5-8.0)
[2023-12-04 15:42] LABS: Troponin-I High Sensitivity < 2.7 ng/L (<3.5-17.0)
[2023-12-04 15:55] LABS: Influenza A PCR NEGATIVE (Negative); Influenza B PCR NEGATIVE (Negative); Resp Syncy Virus RNA Qual PCR NEGATIVE (Negative); SARS COV2 PCR INHOUSE NEGATIVE (Negative)
--- NOTE | 2023-12-04 19:27 | PC.NURSE ---
No answer when called to triage for re assessment x2.
== END 2023-12-04 22:03 | disposition left against medical advice (07) ==
LOC: HO.ED 21:44
PROVIDERS: Physician Assistant Medical; Emergency Provider Emergency Medicine; PCP Family Medicine
DX: R07.9 Chest pain, unspecified (principal); R06.02 Shortness of breath; M79.606 Pain in leg, unspecified; Z03.818 Encounter for observation for suspected exposure to other biological agents ruled out; Z86.718 Personal history of other venous thrombosis and embolism; Z79.899 Other long term (current) drug therapy
CPT/HCPCS: 0241U; 71046; 80053; 83735; 84484; 85025; 85379; 85610; 85730; 93005; 93971; 99283; 99284